=== PATIENT | female | born 1960 | race Caucasian/White ===

== ENCOUNTER → 2018-08-26 08:43 | Outpatient (BNVA) | payer MEDICARE, MEDICAID, SELFPAY | PROVIDERS: PCP Internal Medicine; Referring Provider Internal Medicine; Visit Provider Surgery | DX: K80.13 Calculus of gallbladder with acute and chronic cholecystitis with obstruction (principal) | CPT/HCPCS: 99203 ==

== ENCOUNTER 2018-08-31 06:49 | Day surgery (SDC) | payer MEDICARE, MEDICAID, SELFPAY ==
[2018-08-31] VITALS (7 sets, daily range): BP systolic 91–130; BP diastolic 47–84; PULSE 59–78; RESP 13–18; TEMP 35.3–36.1; O2SAT 94–98
--- NOTE | 2018-08-31 06:31 | W.PM.OP ---
Date of service: 08/31/18 Time of Service: 08:35 Operative Note DATE OF PROCEDURE: 08/31/18 PRE-OP DIAGNOSIS: Chronic Cholecystitis with Cholelithiasis POST-OP DIAGNOSIS: same PROCEDURE: Laparoscopic Cholecystectomy SURGEON: Lynnette Pryor FINISHING MACHINE TENDER: Ofe Olivas ANESTHESIA: GETA (ASA 2/ Mayra Engel CRNA) ESTIMATED BLOOD LOSS: 50 PATHOLOGY: other (Gallbladder and contents) COMPLICATIONS: None Patient was transported to: PACU Patient's condition: stable Implants: None Indications: Mrs. Loredo is a pleasant 57 year old female seen in the office for RUQ and upper back abdominal pain. She had an US done which showed signs consistent with Chronic Cholecystitis and Cholelithiasis. She is at this point unable to eat much due to pain. Risks, benefits, complications were reviewed with the patient in the office. Complications include but are not limited to bleeding, infection, injury to stomach, small bowel and large bowel, injury to the pancreas, injury to the common bile duct necessitating drainage and referral to tertiary center for repair, bile leak, adverse reactions to the medications, complications of intubation including a sore throat or injury to the uvula, [place], stroke and even . Questions were entertained and answered to her satisfaction and she wished to proceed. No guarantees were given or implied. Findings: One large stone noted in the gallbladder neck. Minimal inflammation. No thickening of the gallbladder wall. Procedure Description: After informed consent was obtained the patient was brought to the operating room, placed in a supine position and monitors were applied. SCDs were applied to her lower extremities and she was placed under general anesthesia and intubated without difficulty. Once intubated a Lovelace catheter was placed in a standard sterile fashion. Her abdomen was then prepped and draped in a sterile fashion using ChloraPrep. At this point a timeout was done and the patient's name, date of , procedure type, allergies to medications, metal in her body, antibiotic and DVT prophylaxis, and fire risk was assessed. At this point half percent Marcaine with epi was injected just above the umbilicus into the dermis and subcutaneous tissue. A 5 mm incision was made with an 11 blade. The skin next to the incision was grasped with penetrating towel clamps. While pulling up on the skin a 5 mm port was placed under direct visualization. The abdomen was insuflated. Once insuflated the small bowel and mesentery under the umbilical port was inspected for any injuries. Next 3 more ports were placed. A 12 mm port was placed in the subxiphoid area and two 5 mm ports were placed in the right upper quadrant. The liver was inspected and was smooth. The patient's bed was then turned to the left and her head was brought up. The gallbladder was grasped at the body and pushed towards the right shoulder, this allowed me to visualize the neck of the gallbladder. The neck was grasped and pulled towards the right flank and down allowing me to visualize the lymph node. Using a [place] dissector with cautery the lymph node was gently dissected away from the tissues and the fatty tissue was also dissected away. The cystic duct was identified and it was normal in size. The duct was dissected 360 degrees using the [place] dissector in order for me to visualize its entrance into the gallbladder. Liver was noted behind it. There were no other structures right behind. Critical view was achieved. 3 clips were placed one proximal and 2 distal and the cystic duct was cut. The cystic artery was then identified and dissected 360 degrees. It was located just medial to the cystic duct. It was visualized going into the gallbladder. Once dissected 3 more clips were placed one proximal and 2 distal and the artery was cut. Using the hook dissector the gallbladder was then dissected away from the liver bed and placed into an Endo Catch bag and pulled through the 12 mm port site. The incision did have to be increased in order for the gallbladder to be able to come out. The 12 mm port was placed back into the abdomen under direct visualization. 1 penetrating towel clamp was placed right next to the port to close the enlarged incision so we could keep the abdomen insuflated. The liver bed was inspected no bleeding was noted. All clips were identified on their respective structures. No bile leak was noted from the liver or the cystic duct. The abdomen was then irrigated with a 700 cc of normal saline until the effluent was clear. Once all the fluid was suctioned out, the rest of the local anesthetic mixture was injected above the liver to help with postoperative right shoulder pain. The 12 mm and the 2 right upper quadrant ports were removed under direct visualization and no bleeding was noted from the fascia. The abdomen was deflated completely and lastly the umbilical port was removed. The skin was cleaned and the fascia of the 12 mm port site was closed with a 0 Vicryl figure of eight suture. The dermis was closed with 4-0 Vicryl. The skin was dried and skin affix was applied over the closed incisions. Needle and sponge counts were correct at the end of the case. The blood loss was 50 cc. The Lovelace catheter was removed. At this point the patient was woken up, extubated and taken back to recovery in stable condition. There were no immediate complications.
--- NOTE | 2018-08-31 06:42 | W.PM.DSUDISC ---
Discharge Plan Disposition Patient Disposition: HOME Condition: Good Discharge Details Reason For Visit: Chronic Cholecystectomy Attending Provider: Lynnette Pryor Primary Care Provider: Anna Levine Home Meds and New Rx's Prescriptions: New acetaminophen 325 mg capsule 650 mg PO Q6H PRN (Reason: fever or pain) Qty: 30 RF: 0 ibuprofen [IBU-200] 200 mg tablet 600 mg PO Q6H PRN (Reason: fever or pain) Qty: 30 RF: 0 Continued acetylcysteine [NAC] 600 mg capsule 1,200 mg PO DAILY RF: 0 divalproex [Depakote] 500 mg tablet,delayed release (DR/EC) 500 mg PO HS RF: 0 topiramate [Topamax] 100 mg tablet 200 mg PO HS RF: 0 epinephrine [EpiPen] 0.3 mg/0.3 mL auto-injector 0.3 mg IM ONCE RF: 0 ondansetron 8 mg tablet,disintegrating 8 mg PO TID PRNRF: 0 atorvastatin 10 mg Tablet 10 mg PO DAILY RF: 0 Discharge Instructions Instructions: Laparoscopic Cholecystectomy (DC) Additional Instructions: Activity at Home after surgery: 1. Make sure you walk outside at least 4 times per day 2. You should be able to climb a flight of stairs 3. No driving while in pain or taking pain medications 4. No strenuous activity or heavy lifting for 2 weeks (laparoscopic surgery) Diet, Nutrition, & wound healin. Avoid alcohol until after you are recovered from your surgery 2. Make sure to eat plenty of lean protein (meat, fish, eggs, cottage cheese, beans) 3. Eat a variety of fruits and vegetables. Eat plenty of high fiber foods to avoid constipation. 4. Drink plenty of liquids to stay hydrated and avoid constipation Pain Medications: 1. Alternate Tylenol 650 mg and Ibuprofen 600 mg every 3 hours 2. If a narcotic has been prescribed take as directed only for breakthrough pain For Constipation: 1. Take Milk of Magnesia or MiraLax as needed for constipation Other: 1. You may shower daily. Do not scrub the incisions 2. Do not soak the incisions for 1 week 3. You may alternate ice and heat as needed for pain and swelling Wound Care: 1. Keep the incisions clean and dry Please call our office if you develop: 1. Fevers >101.5 2. Nausea or Vomiting 3. Worsening pain 4. Redness and thick discharge from the wounds If after hours please call the Hospital at and ask to speak to the on-call surgeon Referrals: Lynnette Pryor MD [ [facility] STAFF PHYSICIAN] - 09/13/18 1:30 pm Activity:: no lifting >20 lb x 2 weeks Diet:: Low fat for 2 weeks Discharge Orders Discharge Orders: Discharge Order (Routine); Ordered 08/31/18 Ordered By: Lynnette Pryor DS: Diagnosis Discharge Diagnosis (1) S/P laparoscopic cholecystectomy: Status: Acute
--- NOTE | 2018-08-31 06:45 | PDOC.DSDIS_ITS ---
Discharge Plan Disposition Patient Disposition: HOME Condition: Good Discharge Details Reason For Visit: Chronic Cholecystectomy Attending Provider: Lynnette Pryor Primary Care Provider: Anna Levine Home Meds and New Rx's Prescriptions: New acetaminophen 325 mg capsule 650 mg PO Q6H PRN (Reason: fever or pain) Qty: 30 RF: 0 ibuprofen [IBU-200] 200 mg tablet 600 mg PO Q6H PRN (Reason: fever or pain) Qty: 30 RF: 0 Continued acetylcysteine [NAC] 600 mg capsule 1,200 mg PO DAILY RF: 0 divalproex [Depakote] 500 mg tablet,delayed release (DR/EC) 500 mg PO HS RF: 0 topiramate [Topamax] 100 mg tablet 200 mg PO HS RF: 0 epinephrine [EpiPen] 0.3 mg/0.3 mL auto-injector 0.3 mg IM ONCE RF: 0 ondansetron 8 mg tablet,disintegrating 8 mg PO TID PRNRF: 0 atorvastatin 10 mg Tablet 10 mg PO DAILY RF: 0 Discharge Instructions Instructions: Laparoscopic Cholecystectomy (DC) Additional Instructions: Activity at Home after surgery: 1. Make sure you walk outside at least 4 times per day 2. You should be able to climb a flight of stairs 3. No driving while in pain or taking pain medications 4. No strenuous activity or heavy lifting for 2 weeks (laparoscopic surgery) Diet, Nutrition, & wound healin. Avoid alcohol until after you are recovered from your surgery 2. Make sure to eat plenty of lean protein (meat, fish, eggs, cottage cheese, beans) 3. Eat a variety of fruits and vegetables. Eat plenty of high fiber foods to avoid constipation. 4. Drink plenty of liquids to stay hydrated and avoid constipation Pain Medications: 1. Alternate Tylenol 650 mg and Ibuprofen 600 mg every 3 hours 2. If a narcotic has been prescribed take as directed only for breakthrough pain For Constipation: 1. Take Milk of Magnesia or MiraLax as needed for constipation Other: 1. You may shower daily. Do not scrub the incisions 2. Do not soak the incisions for 1 week 3. You may alternate ice and heat as needed for pain and swelling Wound Care: 1. Keep the incisions clean and dry Please call our office if you develop: 1. Fevers >101.5 2. Nausea or Vomiting 3. Worsening pain 4. Redness and thick discharge from the wounds If after hours please call the Hospital at and ask to speak to the on-call surgeon Referrals: Lynnette Pryor MD [ [facility] STAFF PHYSICIAN] - 09/13/18 1:30 pm Activity:: no lifting >20 lb x 2 weeks Diet:: Low fat for 2 weeks Discharge Orders Discharge Orders: Discharge Order (Routine); Ordered 08/31/18 Ordered By: Lynnette Pryor DS: Diagnosis Discharge Diagnosis (1) S/P laparoscopic cholecystectomy: Status: Acute
[2018-08-31] MEDS: Lactated Ringers 1,000 ML 80 ML IV (07:36)
[2018-08-31] MEDS: AMPICILLIN/SULBACTAM 3 GM in Normal Saline 100 ML IVPB (08:29)
--- NOTE | 2018-08-31 09:07 | GB_PTH ---
PATIENT: Matilda Loredo LOC: [facility] U#:[id number] AGE/SX: 57/F ROOM: RE08/31/[address]: Lynnette Pryor MD : [id number] BED: DIS: 08/31/2018 SPEC #: [id number] RECD: 08/31/18 12:50 STATUS: DIANA REQ #: [id number] ZAHIDA: 08/31/18 09:[address]: Lynnette Pryor DEPT: Surgical Specimen RECD BY: Evonne Hoover ENTERED: 08/31/18 12:50 SP TYPE: GB OTHR DR: Anna Levine Tissues: 1 - GALLBLADDER Procedures: GROSS AND MICRO LEVEL 3 Comments: [id number]
[2018-08-31] MEDS: Lidocaine 1% Multi-Dose 50 ML VIAL (09:15)
== END 2018-08-31 12:35 | disposition home or self-care (01) ==
LOC: SUR 06:50
PROVIDERS: PCP Internal Medicine; Visit Provider Surgery
PROC: 0FT44ZZ Resection of Gallbladder, Percutaneous Endoscopic Approach (ICD-10-PCS; CPT 47562; principal; 2018-08-31 08:00)
DX: K80.12 Calculus of gallbladder with acute and chronic cholecystitis without obstruction (principal); G47.33 Obstructive sleep apnea (adult) (pediatric)
CPT/HCPCS: 47562; 93005; 96361; 96365; 99284; 88304; 93010; J0295

== ENCOUNTER 2018-08-31 19:18 | Emergency (ER) | payer MEDICARE, MEDICAID, SELFPAY ==
[2018-08-31] VITALS (23 sets, daily range): BP systolic 147–175; BP diastolic 71–86; PULSE 60–68; RESP 16–20; TEMP 36.4–36.8; O2SAT 93–98
--- NOTE | 2018-08-31 19:38 | W.ED.GENAD ---
Discharge Plan Disposition Patient Disposition: HOME Condition: Good Discharge Details Chief Complaint: Nausea/Vomit/Diar Clinical Impression: Post-operative nausea and vomiting Primary Care Provider: Anna Levine ED Provider: Piter Castellanos [place] Meds and New Rx's Prescriptions: Continued acetylcysteine [NAC] 600 mg capsule 1,200 mg PO DAILY RF: 0 divalproex [Depakote] 500 mg tablet,delayed release (DR/EC) 500 mg PO HS RF: 0 topiramate [Topamax] 100 mg tablet 200 mg PO HS RF: 0 epinephrine [EpiPen] 0.3 mg/0.3 mL auto-injector 0.3 mg IM ONCE RF: 0 ondansetron 8 mg tablet,disintegrating 8 mg PO TID PRNRF: 0 atorvastatin 10 mg Tablet 10 mg PO DAILY RF: 0 acetaminophen 325 mg capsule 650 mg PO Q6H PRN (Reason: fever or pain) Qty: 30 RF: 0 ibuprofen [IBU-200] 200 mg tablet 600 mg PO Q6H PRN (Reason: fever or pain) Qty: 30 RF: 0 Discharge Instructions Instructions: Acute Nausea and Vomiting (ED) Additional Instructions: The phenergan you received for nausea and vomiting will make you very sedated. Would go home and try to sleep the rest of the night. I did speak to Dr. Pryor and she will check in on you in the morning. Return to ED for increasing abdominal pain, fever, recurrent/persistent vomiting. Referrals: Lynnette Pryor MD [ [facility] STAFF PHYSICIAN] - Medical Decision Making Patient actively vomiting here. She denies any increased or changed abdominal pain and when she was discharged postop. She denies chest pain or shortness of breath. She has had persistent vomiting since she woke up around 5. Will get an EKG but I do not think laboratory studies are necessary. Likely postoperative nausea and vomiting. Will place a line and give a liter of fluid with Phenergan 25 mg IV. Patient very sedated by the Phenergan but nausea and vomiting has stopped. She has tolerated sips of water. I did speak to Dr. Pryor. Will discharge the patient home and Dr. Pryor will check on her in the morning. Return to ED overnight if any fever, worsening abdominal pain, persistent vomiting. ECG Data Attestation: I personally reviewed and interpreted this ECG (s) as follows: Prior ECG tracings: not available for review Interpretation: Sinus rhythm at 61. Normal intervals and axis. Probable LVH with ST changes consistent with LVH. No acute ST elevation. HPI General Mode of arrival: wheelchair. Date/Time Provider Initiated Documentation: 08/31/18 19:31. Limitations to Documentation: no limitations. Information obtained by: patient. HPI Narrative: Patient presents to ED with nausea and vomiting. Patient had a laparoscopic cholecystectomy this morning. She went home and was doing fine. She took a nap. When she woke up she started to have vomiting and has been unable to stop. She has not had any increase in abdominal pain. She has had no fever she is aware of. At this point she is vomiting bilious material. She did try her Zofran ODT. She called the surgeon, Dr. Pryor, and was referred to the ED. Related Data Home Medications Medication Instructions Recorded Confirmed epinephrine 0.3 mg/0.3 mL 0.3 mg IM ONCE 08/23/18 08/31/18 injection, auto-injector ondansetron 8 mg disintegrating 8 mg PO TID PRN 08/23/18 08/31/18 tablet acetylcysteine 600 mg capsule 1,200 mg PO DAILY 08/26/18 08/31/18 divalproex 500 mg tablet,delayed 500 mg PO HS 08/26/18 08/31/18 release topiramate 100 mg tablet 200 mg PO HS 08/26/18 08/31/18 atorvastatin 10 mg PO DAILY 08/29/18 08/31/18 acetaminophen 650 mg PO Q6H PRN #30 cap 08/31/18 08/31/18 ibuprofen [IBU-200] 600 mg PO Q6H PRN #30 tab 08/31/18 08/31/18 Previous Rx's Medication Instructions Recorded acetaminophen 650 mg PO Q6H PRN #30 cap 08/31/18 ibuprofen [IBU-200] 600 mg PO Q6H PRN #30 tab 08/31/18 Allergies Allergy/AdvReac Type Severity Reaction Status Date / Time Tricyclic Compounds AdvReac Intermediate Hives Verified 08/31/18 19:30 General Stated Complaint: Nausea/Vomit/Diar [place]: 3 Review of Systems Review of Systems As documented in HPI otherwise negative as below. Const: no fever, chills, weakness Resp: no cough, SOB, pleuritic pain CV: no CP, diaphoresis, edema, syncope GI: no abdominal pain or diarrhea; positive nausea/vomiting Neuro: no headache, numbness, focal weakness, confusion [facility] Medical History Tenosynovitis (Chronic) Seizures (Chronic) Obstructive sleep apnea of adult (Chronic) Hypothyroidism (Chronic) Hyperlipidemia (Chronic) Cervical radiculopathy (Chronic) Carpal tunnel syndrome, left upper limb (Chronic) Allergic rhinitis (Chronic) Surgical History H/O gynecological procedure (Resolved) S/P laparoscopic cholecystectomy (Acute ~08/31/18) History of ear, nose, and throat (ENT) surgery (Resolved) Hx of myomectomy (Resolved) S/P total hysterectomy (Inactive) Social History Smoking/Tobacco Use Status: Current-Occasional Tobacco Type: cigarettes Alcohol Intake: current Alcohol Intake frequency: holidays/special occasions only Drug use: Daily Substance use type: marijuana Household members: significant other Number of Children: 3 Do you feel safe at home: Yes Do you feel safe in your relationship?: Yes Exam Narrative Exam Narrative: 1. Const: WDWN female actively vomiting. 2. Eyes: No conjunctival injection or scleral icterus. 3. ENT: Mucous membranes moist. 4. Neck: Supple. Trachea midline. 5. CVS: RRR without murmurs or gallops. Good radial pulses. 6. RESP: Unlabored respiratory effort. Clear to auscultation bilaterally. No wheezes, rales or rhonchi. 7. GI: Soft, NT/ND. No guarding or rebound. Bruising around incisional sites. 8. MSK: No C/C/E present. No deformity or tenderness noted. 9. Skin: Warm and dry. No rashes. 10. Neuro: A&O x3. pipe fitter maintenance II-XII grossly intact. Sensation grossly intact, no focal neurologic deficits. Course Vital Signs Temperature 97.5 F L 08/31/18 19:24 Pulse 60 08/31/18 19:24 Respiratory Rate 16 08/31/18 19:24 Blood Pressure 172/86 H 08/31/18 19:24 Pulse Oximetry 97 08/31/18 19:24 Temperature 97.5 F L 08/31/18 19:24 Temperature Source Skin 08/31/18 19:24 Pulse 60 08/31/18 19:24 Respiratory Rate 16 08/31/18 19:24 Respiratory Effort 08/31/18 19:29 Blood Pressure 172/86 H 08/31/18 19:24 Blood Pressure Position Sitting 08/31/18 19:24 Pulse Oximetry 97 08/31/18 19:24 Oxygen Delivery Method Room Air 08/31/18 19:24 Oxygen Flow Rate 0 08/31/18 19:24 Pain Level 3 08/31/18 19:24
[2018-08-31] MEDS: Normal Saline 1,000 ML 1000 ML IV (19:50)
--- NOTE | 2018-09-01 09:28 | NUR.NOTE ---
Nursing Note: Patient's daughter called stating that she brought her mother in last night for vomiting, and that the patient is still vomiting. I don't know what to do. I told her to call the Surgical office and let them know what is happening. With both last night and today. If she feels that she needs to return to the ED they should do so. Krissy Domínguez.
== END 2018-08-31 22:28 | disposition home or self-care (01) ==
PROVIDERS: Emergency Provider Emergency Medicine; PCP Internal Medicine
DX: R11.2 Nausea with vomiting, unspecified (principal); Z90.49 Acquired absence of other specified parts of digestive tract
CPT/HCPCS: 93005; 96361; 96365; 99284; 93010

== ENCOUNTER 2018-09-01 11:54 | Inpatient (IN) | payer MEDICARE, MEDICAID, SELFPAY ==
[2018-09-01 11:55] VITALS: BP 148/76; PULSE 74; RESP 18; TEMP 37.1; O2SAT 99
[2018-09-01] MEDS: Normal Saline 1,000 ML 1000 ML IV (12:00)
--- NOTE | 2018-09-01 12:17 | W.ED.GENAD ---
Discharge Plan Disposition Patient Disposition: [facility] INPATIENT Discharge Details Chief Complaint: Nausea/Vomit/Diar Admit Date/Time: 09/01/18 13:47 Admit Provider: Katelynn Jones Attending Provider: Katelynn Jones Primary Care Provider: Anna Levine ED Provider: Meaghan Olmedo Discharge Data Discharge Date/Time-TO BE ENTERED AT DEPARTURE: 09/01/18 14:28 Medical Decision Making Patient 57-year-old female presents today with chief complaint of nausea and vomiting. Patient is status post cholecystectomy, procedures performed yesterday morning. She was seen here last night for nausea and vomiting. At that time, she is treated with IV Phenergan which worked well for her. She reports that the home medication was unable to control her continued symptoms and she has not been able to stay hydrated secondary to this continued nausea. She reports that typically she has a bowel movement every morning, did not have one yesterday and none today. States she is also not been passing any flatus. Reports the pain is minimal and associates with areas of her incisions. Rates her pain at a 3 out of 10. She reports that she has been monitoring her temperature and has not noted a fever. No pain in her back. Denies any hematemesis. No change in urinary habits. On exam, patient appears uncomfortable. Abdomen is soft and nondistended. No guarding. Incisions appear to be healing well with some ecchymosis running circumferentially about these. No erythema or warmth. No discharge. Patient responded well to IV Phenergan last night, we will treat her with this once again today. Will hydrate the patient. She has not been passing any flatus, I am concerned for possible obstruction being the source of her vomiting. We will obtain a plain upright film. Once I have received this I will contact the on-call surgeon I reviewed the imaging not see any air-fluid levels. I am concerned that her white count is 22. This may be stress reaction but does seem quite high for this. Consulted with who is going to review the imaging and call back. Patient reports that she feels slight relief with the IV Phenergan but does not feel comfortable going home she is concerned she was just returning once again Discussed patients concerns with Dr. Jones. She evaluated the patient and has agreed to admission for continued hydration, monitoring and treatment for her nausea. Discussed plan wtih patient who is in agreemtn. HPI General Mode of arrival: wheelchair. Date/Time Provider Initiated Documentation: 09/01/18 12:05. Limitations to Documentation: no limitations. Information obtained by: patient, family and RN notes reviewed. History of Present Illness 57 year old F presents to the emergency department with the chief complaint of nausea and vomiting, described as mild, with intensity rated at 3. Quality is described as aching, and is localized to the abdomen. Patient reports no radiation. Patient started experiencing this day(s) (1) and it has been constant. No relieving factors improve symptom(s), No exacerbating factors reported . Patient notes nausea/vomiting; denies chest pain, cough, diaphoresis, fever/chills, headaches, rash and shortness of breath. Patient did receive the following treatments prior to arrival, other (ODT Zofran) Related Data Home Medications Medication Instructions Recorded Confirmed epinephrine 0.3 mg/0.3 mL 0.3 mg IM ONCE 08/23/18 08/31/18 injection, auto-injector ondansetron 8 mg disintegrating 8 mg PO TID PRN 08/23/18 08/31/18 tablet acetylcysteine 600 mg capsule 1,200 mg PO DAILY 08/26/18 08/31/18 divalproex 500 mg tablet,delayed 500 mg PO HS 08/26/18 08/31/18 release topiramate 100 mg tablet 200 mg PO HS 08/26/18 08/31/18 atorvastatin 10 mg PO DAILY 08/29/18 08/31/18 acetaminophen 650 mg PO Q6H PRN #30 cap 08/31/18 08/31/18 ibuprofen [IBU-200] 600 mg PO Q6H PRN #30 tab 08/31/18 08/31/18 Previous Rx's Medication Instructions Recorded acetaminophen 650 mg PO Q6H PRN #30 cap 08/31/18 ibuprofen [IBU-200] 600 mg PO Q6H PRN #30 tab 08/31/18 Allergies Allergy/AdvReac Type Severity Reaction Status Date / Time bee venom protein (honey bee) Allergy Severe Swelling/Ed Unverified 09/01/18 12:03 emiliano Tricyclic Compounds AdvReac Intermediate Hives Verified 09/01/18 12:02 General Stated Complaint: Nausea/Vomit/Diar [place]: 3 Review of Systems Constitutional Reports as per HPI, Denies chills, Denies fatigue, Denies fever(s) and Denies headache(s) ENT Denies headache(s) Cardiovascular Reports as per HPI, Denies chest pain and Denies dyspnea Respiratory Reports as per HPI, Denies cough and Denies dyspnea Gastrointestinal Reports as per HPI, Reports abdominal pain (discomfort assocated with recent surgery), Reports belching, Denies melena, Denies bloating, Reports change in bowel habits (no BM x 2 days), Denies cramping, Denies diarrhea, Reports nausea, Reports vomiting and Denies hematemesis Musculoskeletal Reports as per HPI and Denies back pain Integumentary/Breasts Reports as per HPI and Denies rash Neurologic Reports as per HPI and Denies headache(s) Endocrine Denies fatigue PFSH Medical History Dehydration (Acute) Elevated WBC count (Acute) PONV (postoperative nausea and vomiting) (Acute) Tenosynovitis (Chronic) Seizures (Chronic) Obstructive sleep apnea of adult (Chronic) Hypothyroidism (Chronic) Hyperlipidemia (Chronic) Cervical radiculopathy (Chronic) Carpal tunnel syndrome, left upper limb (Chronic) Allergic rhinitis (Chronic) Surgical History H/O gynecological procedure (Resolved) S/P laparoscopic cholecystectomy (Acute ~08/31/18) History of ear, nose, and throat (ENT) surgery (Resolved) Hx of myomectomy (Resolved) S/P total hysterectomy (Inactive) Family History Father Progressive supranuclear palsy Mother Hyperlipidemia Hypertension Diabetes Social History Smoking/Tobacco Use Status: Current-Occasional Tobacco Type: cigarettes Alcohol Intake: current Alcohol Intake frequency: holidays/special occasions only Drug use: Daily Substance use type: marijuana Household members: significant other Number of Children: 3 Do you feel safe at home: Yes Do you feel safe in your relationship?: Yes Exam Const General: cooperative, healthy appearing, comfortable and well developed Nutritional Appearance: well nourished and overweight Orientation: alert and awake HENMT Head: normal to inspection Mouth: moist mucous membranes Resp Effort & Inspection: normal respiratory effort, able to speak in complete sentences and no respiratory distress Auscultation: clear to auscultation bilaterally, no rales, no rhonchi and no wheezes Cardio Rate: regular rate Rhythm: regular rhythm Heart Sounds: S1 normal and S2 normal GI Inspection: abdominal wall ecchymosis (ecchymosis around incisions), no edema, non-distended, incision and obesity Palpation: soft, no hepatosplenomegaly, no aortic enlargement, not firm and no guarding Percussion: normal to percussion Auscultation: absent bowel sounds Back/Spine/Pelvis Back: no CVA tenderness Skin General skin exam: no rashes or lesions noted Trauma: no lacerations or abrasions Neuro General: alert and awake Cognition: normal cognition Speech: speech normal Gait: normal gait Psych Appearance: grossly normal and well kempt Mental Status: mental status grossly normal Speech and Movement: speech and movement normal Course Vital Signs Temperature 37.1 C 09/01/18 11:55 Pulse 74 09/01/18 11:55 Respiratory Rate 18 09/01/18 11:55 Blood Pressure 148/76 H 09/01/18 11:55 Pulse Oximetry 99 09/01/18 11:55 Temperature 37.1 C 09/01/18 11:55 Temperature Source Skin 09/01/18 11:55 Pulse 74 09/01/18 11:55 Respiratory Rate 18 09/01/18 11:55 Respiratory Effort Non-Labored 09/01/18 12:04 Blood Pressure 148/76 H 09/01/18 11:55 Pulse Oximetry 99 09/01/18 11:55 Oxygen Delivery Method Room Air 09/01/18 11:55 Oxygen Flow Rate 0 09/01/18 11:55 Pain Level 3 09/01/18 11:55
[2018-09-01 12:19] LABS: Abs Immature Grans 0.09 k/cumm (0.0-0.09); HCT 45.6 % (36.0-46.0); HGB 15.5 g/dL (12.0-15.5); Mean Corpuscular Hemoglobin 31.3 pg (27.0-33.0); Mean Corpuscular Volume 91.9 fL (80-95); Mean Platelet Volume 10.9 fL (8.0-11.0); Platelet Count 358 x1000/uL (130-400); RBC 4.96 m/cumm (4.00-5.20); RBC Distribution Width 13.1 % (11.7-14.6); White Blood Cell Count 22.14 k/cumm (4.4-10.8)
[2018-09-01] MEDS: Normal Saline Flush 10 ML SYR IVP (12:22)
--- NOTE | 2018-09-01 12:31 | DI.RAD_ITS ---
SYMPTOMS/DIAGNOSIS: NAUSEA, VOMITING, POSTOPERATIVE, NO FLATUS PA CHEST: The heart is normal in size. The lungs are clear. The mediastinal structures and pleura appear intact. CONCLUSION: Normal chest. ABDOMEN: Three views were obtained. No free intraperitoneal air seen on upright views. The bowel gas pattern is unremarkable with a moderate quantity of fecal material in the colon. There are vascular clips in the right upper quadrant consistent with a previous cholecystectomy. CONCLUSION: No evidence of acute process.
[2018-09-01 12:35] LABS: Absolute Lymphocyte Count 3.32 k/cumm (1.2-3.4); Absolute Monocyte Count 1.33 k/cumm (0.11-0.7); Absolute Neutrophil Count 17.49 k/cumm (1.2-6.7); Atypical Lymphocytes % 4; Diff Comment Manual Differential; RBC Morphology Normal
--- NOTE | 2018-09-01 12:35 | ED.GENADUL_ITS ---
Discharge Plan Disposition Patient Disposition: [facility] INPATIENT Discharge Details Chief Complaint: Nausea/Vomit/Diar Admit Date/Time: 09/01/18 13:47 Admit Provider: Katelynn Jones Attending Provider: Katelynn Jones Primary Care Provider: Anna Levine ED Provider: Meaghan Olmedo Discharge Data Discharge Date/Time-TO BE ENTERED AT DEPARTURE: 09/01/18 14:28 Medical Decision Making Patient 57-year-old female presents today with chief complaint of nausea and vomiting. Patient is status post cholecystectomy, procedures performed yesterday morning. She was seen here last night for nausea and vomiting. At that time, she is treated with IV Phenergan which worked well for her. She reports that the home medication was unable to control her continued symptoms and she has not been able to stay hydrated secondary to this continued nausea. She reports that typically she has a bowel movement every morning, did not have one yesterday and none today. States she is also not been passing any flatus. Reports the pain is minimal and associates with areas of her incisions. Rates her pain at a 3 out of 10. She reports that she has been monitoring her temperature and has not noted a fever. No pain in her back. Denies any hematemesis. No change in urinary habits. On exam, patient appears uncomfortable. Abdomen is soft and nondistended. No guarding. Incisions appear to be healing well with some ecchymosis running circumferentially about these. No erythema or warmth. No discharge. Patient responded well to IV Phenergan last night, we will treat her with this once again today. Will hydrate the patient. She has not been passing any flatus, I am concerned for possible obstruction being the source of her vomiting. We will obtain a plain upright film. Once I have received this I will contact the on- call surgeon I reviewed the imaging not see any air-fluid levels. I am concerned that her white count is 22. This may be stress reaction but does seem quite high for this. Consulted with who is going to review the imaging and call back. Patient reports that she feels slight relief with the IV Phenergan but does not feel comfortable going home she is concerned she was just returning once again Discussed patients concerns with Dr. Jones. She evaluated the patient and has agreed to admission for continued hydration, monitoring and treatment for her nausea. Discussed plan wtih patient who is in agreemtn. HPI General Mode of arrival: wheelchair . Date/Time Provider Initiated Documentation: 09/01/18 12:05 . Limitations to Documentation: no limitations . Information obtained by: patient, family and RN notes reviewed . History of Present Illness 57 year old F presents to the emergency department with the chief complaint of nausea and vomiting, described as mild, with intensity rated at 3. Quality is described as aching, and is localized to the abdomen. Patient reports no radiation. Patient started experiencing this day(s) (1) and it has been constant. No relieving factors improve symptom(s), No exacerbating factors reported . Patient notes nausea/vomiting; denies chest pain, cough, diaphoresis, fever/chills, headaches, rash and shortness of breath. Patient did receive the following treatments prior to arrival, other (ODT Zofran) Related Data Home Medications Medication Instructions Recorded Confirmed epinephrine 0.3 mg/0.3 mL 0.3 mg IM ONCE 08/23/18 08/31/18 injection, auto-injector ondansetron 8 mg disintegrating 8 mg PO TID PRN 08/23/18 08/31/18 tablet acetylcysteine 600 mg capsule 1,200 mg PO DAILY 08/26/18 08/31/18 divalproex 500 mg tablet,delayed 500 mg PO HS 08/26/18 08/31/18 release topiramate 100 mg tablet 200 mg PO HS 08/26/18 08/31/18 atorvastatin 10 mg PO DAILY 08/29/18 08/31/18 acetaminophen 650 mg PO Q6H PRN #30 cap 08/31/18 08/31/18 ibuprofen [IBU-200] 600 mg PO Q6H PRN #30 tab 08/31/18 08/31/18 Previous Rx's Medication Instructions Recorded acetaminophen 650 mg PO Q6H PRN #30 cap 08/31/18 ibuprofen [IBU-200] 600 mg PO Q6H PRN #30 tab 08/31/18 Allergies Allergy/AdvReac Type Severity Reaction Status Date / Time bee venom protein (honey bee) Allergy Severe Swelling/Ed Unverified 09/01/18 12:03 emiliano Tricyclic Compounds AdvReac Intermediate Hives Verified 09/01/18 12:02 General Stated Complaint: Nausea/Vomit/Diar [place]: 3 Review of Systems Constitutional Reports as per HPI, Denies chills, Denies fatigue, Denies fever(s) and Denies headache(s) ENT Denies headache(s) Cardiovascular Reports as per HPI, Denies chest pain and Denies dyspnea Respiratory Reports as per HPI, Denies cough and Denies dyspnea Gastrointestinal Reports as per HPI, Reports abdominal pain (discomfort assocated with recent surgery), Reports belching, Denies melena, Denies bloating, Reports change in bowel habits (no BM x 2 days), Denies cramping, Denies diarrhea, Reports nausea, Reports vomiting and Denies hematemesis Musculoskeletal Reports as per HPI and Denies back pain Integumentary/Breasts Reports as per HPI and Denies rash Neurologic Reports as per HPI and Denies headache(s) Endocrine Denies fatigue PFSH Medical History Dehydration (Acute) Elevated WBC count (Acute) PONV (postoperative nausea and vomiting) (Acute) Tenosynovitis (Chronic) Seizures (Chronic) Obstructive sleep apnea of adult (Chronic) Hypothyroidism (Chronic) Hyperlipidemia (Chronic) Cervical radiculopathy (Chronic) Carpal tunnel syndrome, left upper limb (Chronic) Allergic rhinitis (Chronic) Surgical History H/O gynecological procedure (Resolved) S/P laparoscopic cholecystectomy (Acute ~08/31/18) History of ear, nose, and throat (ENT) surgery (Resolved) Hx of myomectomy (Resolved) S/P total hysterectomy (Inactive) Family History Father Progressive supranuclear palsy Mother Hyperlipidemia Hypertension Diabetes Social History Smoking/Tobacco Use Status: Current-Occasional Tobacco Type: cigarettes Alcohol Intake: current Alcohol Intake frequency: holidays/special occasions only Drug use: Daily Substance use type: marijuana Household members: significant other Number of Children: 3 Do you feel safe at home: Yes Do you feel safe in your relationship?: Yes Exam Const General: cooperative, healthy appearing, comfortable and well developed Nutritional Appearance: well nourished and overweight Orientation: alert and awake HENMT Head: normal to inspection Mouth: moist mucous membranes Resp Effort & Inspection: normal respiratory effort, able to speak in complete sentences and no respiratory distress Auscultation: clear to auscultation bilaterally, no rales, no rhonchi and no wheezes Cardio Rate: regular rate Rhythm: regular rhythm Heart Sounds: S1 normal and S2 normal GI Inspection: abdominal wall ecchymosis (ecchymosis around incisions), no edema, non-distended, incision and obesity Palpation: soft, no hepatosplenomegaly, no aortic enlargement, not firm and no guarding Percussion: normal to percussion Auscultation: absent bowel sounds Back/Spine/Pelvis Back: no CVA tenderness Skin General skin exam: no rashes or lesions noted Trauma: no lacerations or abrasions Neuro General: alert and awake Cognition: normal cognition Speech: speech normal Gait: normal gait Psych Appearance: grossly normal and well kempt Mental Status: mental status grossly normal Speech and Movement: speech and movement normal Course Vital Signs Temperature 37.1 C 09/01/18 11:55 Pulse 74 09/01/18 11:55 Respiratory Rate 18 09/01/18 11:55 Blood Pressure 148/76 H 09/01/18 11:55 Pulse Oximetry 99 09/01/18 11:55 Temperature 37.1 C 09/01/18 11:55 Temperature Source Skin 09/01/18 11:55 Pulse 74 09/01/18 11:55 Respiratory Rate 18 09/01/18 11:55 Respiratory Effort Non-Labored 09/01/18 12:04 Blood Pressure 148/76 H 09/01/18 11:55 Pulse Oximetry 99 09/01/18 11:55 Oxygen Delivery Method Room Air 09/01/18 11:55 Oxygen Flow Rate 0 09/01/18 11:55 Pain Level 3 09/01/18 11:55
[2018-09-01 12:38] LABS: ALT 38 U/L (12-78); AST 23 U/L (15-37); Albumin 4.2 g/dL (3.4-5.0); Alkaline Phosphatase 96 U/L (46-116); Anion Gap 12.7 mmol/L (3-11); BUN 10 mg/dL (7-18); Bilirubin, Total 0.5 mg/dL (0.2-1.0); CO2 23.3 mmol/L (21.0-32.0); CREATININE 0.87 mg/dL (0.55-1.02); Calcium 9.2 mg/dL (8.5-10.1); Chloride 102 mmol/L (98-107); Glucose 129 mg/dL (70-100); Magnesium 2.4 mg/dL (1.8-2.4); Potassium 3.6 mmol/L (3.5-5.1); Sodium 138 mmol/L (136-145); Total Protein 8.6 g/dL (6.4-8.2)
[2018-09-01 12:40] LABS: Troponin I < 0.02 ng/mL (0.00-0.06)
[2018-09-01 14:04] LABS: Lactate-non-spesis 1.8 mmol/l (0.6-1.4)
[2018-09-01 14:21] VITALS: BP 148/76; PULSE 74; RESP 18; TEMP 37.1; O2SAT 99
--- NOTE | 2018-09-01 14:27 | W.PM.HP.N ---
Date of service: 09/01/18 Time of Service: 14:27 Assessment and Plan (1) S/P laparoscopic cholecystectomy: Current visit: No Status: Acute admit for hydration and N/V control uncertain of signif of elevated WBC- check procalcitonin and lactate. will follow. no clinical source evident for infection : no pneumonia/UTI/soft infection/intra-abdom infection or abscess/blood stream infection. Will monitor for these. supportive care cont meds for seizures if increase in abdom pain or cont w/ N/V- consider ordering HIDA to assess for bile leak. clinically dose not appear to have bile leak at this time. clinically does not appear to have any bile leak/CBD injury/ intra-abdom infections. no peritonitis or signs of bowel injury. (2) Seizures: Current visit: No Status: Chronic cont meds (3) Obstructive sleep apnea of adult: Current visit: No Status: Chronic CPAP (4) Hypothyroidism: Current visit: No Status: Chronic cont meds (5) Hyperlipidemia: Current visit: No Status: Chronic cont meds (6) PONV (postoperative nausea and vomiting): Current visit: Yes Status: Acute admit for hydration and symptom control (7) Elevated WBC count: Current visit: Yes Status: Acute uncertain of signi at this time (8) Dehydration: Current visit: Yes Status: Acute as above History of Present Illness Chief Complaint: PONV Consults Consult date: 09/01/18 Requesting physician: Josefina Madera Narrative: pt underwent lap [place] on 08/31 for gallstones. review Op report shows to be pretty straight foreward case w/ no signif dif or problems. Pt was in ED last pm w/ PONV. Pt has had mult sx in past w/ no hx of PONV. ODT Zofran not controlling n/v. Pt very tired and dehydrated. still + N/V. Elevated WBC- seems slt higher than what would expect for just postOp stress. clinical s/s don't seem to suggest bowel injury or bile duct injury or bile leak. no signs of UTI/pneumonia/DVT/wound infection. + smoker. no DM. Will admit for hydration/ N/V control and obs. Don't see indication for abx at this time. will monitor closely for signs of infection/leak. Poss HIDA in am if signs of bile leak. PFSH Medical History Tenosynovitis (Chronic) Seizures (Chronic) Obstructive sleep apnea of adult (Chronic) Hypothyroidism (Chronic) Hyperlipidemia (Chronic) Cervical radiculopathy (Chronic) Carpal tunnel syndrome, left upper limb (Chronic) Allergic rhinitis (Chronic) Surgical History H/O gynecological procedure (Resolved) S/P laparoscopic cholecystectomy (Acute ~08/31/18) History of ear, nose, and throat (ENT) surgery (Resolved) Hx of myomectomy (Resolved) S/P total hysterectomy (Inactive) Family History Father Progressive supranuclear palsy Mother Hyperlipidemia Hypertension Diabetes Social History Smoking/Tobacco Use Status: Current-Occasional Tobacco Type: cigarettes Alcohol Intake: current Alcohol Intake frequency: holidays/special occasions only Drug use: Daily Substance use type: marijuana Household members: significant other Number of Children: 3 Do you feel safe at home: Yes Do you feel safe in your relationship?: Yes Meds Home Medications Medication Instructions Recorded Confirmed Type epinephrine 0.3 mg/0.3 mL 0.3 mg IM ONCE 08/23/18 08/31/18 History injection, auto-injector ondansetron 8 mg disintegrating 8 mg PO TID PRN 08/23/18 08/31/18 History tablet acetylcysteine 600 mg capsule 1,200 mg PO DAILY 08/26/18 08/31/18 History divalproex 500 mg tablet,delayed 500 mg PO HS 08/26/18 08/31/18 History release topiramate 100 mg tablet 200 mg PO HS 08/26/18 08/31/18 History atorvastatin 10 mg PO DAILY 08/29/18 08/31/18 History acetaminophen 650 mg PO Q6H PRN #30 cap 08/31/18 08/31/18 Rx ibuprofen [IBU-200] 600 mg PO Q6H PRN #30 tab 08/31/18 08/31/18 Rx Allergies Allergy/AdvReac Type Severity Reaction Status Date / Time bee venom protein (honey bee) Allergy Severe Swelling/Ed Unverified 09/01/18 12:03 emiliano Tricyclic Compounds AdvReac Intermediate Hives Verified 09/01/18 12:02 Results Labs : 09/01/18 14:25 09/01/18 12:00 Laboratory Results - last 24 hr 09/01/18 09/01/18 09/01/18 12:00 12:00 14:00 WBC 22.14 H RBC 4.96 Hgb 15.5 Hct 45.6 MCV 91.9 MCH 31.3 MCHC 34.0 RDW 13.1 Plt Count 358 MPV 10.9 Immature Gran % 0.0 Neutrophils % 79.0 Lymphocytes % 11.0 Atypical Lymphs % 4 Monocytes % 6.0 Eosinophils % 0.0 Basophils % 0.0 Absolute Neutrophils 17.49 H Absolute Lymphocytes 3.32 Absolute Monocytes 1.33 H Absolute Eosinophils 0.00 Absolute Basophils 0.00 Differential Comment Manual differential RBC Morphology Normal Sodium 138 Potassium 3.6 Chloride 102 Carbon Dioxide 23.3 Anion Gap 12.7 H BUN 10 Creatinine 0.87 Estimated GFR/1.73 m2 >= 60.00 Glucose 129 H Lactate 1.8 H Calcium 9.2 Magnesium 2.4 Total Bilirubin 0.5 AST 23 ALT 38 Alkaline Phosphatase 96 Troponin I < 0.02 Total Protein 8.6 H Albumin 4.2 09/01/18 09/01/18 16:54 19:54 WBC RBC Hgb Hct MCV MCH MCHC RDW Plt Count MPV Immature Gran % Neutrophils % Lymphocytes % Atypical Lymphs % Monocytes % Eosinophils % Basophils % Absolute Neutrophils Absolute Lymphocytes Absolute Monocytes Absolute Eosinophils Absolute Basophils Differential Comment RBC Morphology Sodium Potassium Chloride Carbon Dioxide Anion Gap BUN Creatinine Estimated GFR/1.73 m2 Glucose Lactate Cancelled Cancelled Calcium Magnesium Total Bilirubin AST ALT Alkaline Phosphatase Troponin I Total Protein Albumin Last Vital Signs Temp 37.1 C 09/01/18 11:55 Pulse 74 09/01/18 11:55 Resp 18 09/01/18 11:55 BP 148/76 H 09/01/18 11:55 Pulse Ox 99 09/01/18 11:55
[2018-09-01 14:33] LABS: Abs Immature Grans 0.06 k/cumm (0.0-0.09); Absolute Basophil Count 0.02 k/cumm (0.0-0.2); Absolute Lymphocyte Count 2.85 k/cumm (1.2-3.4); Absolute Monocyte Count 1.64 k/cumm (0.11-0.7); Basophils % 0.1; Eosinophils % 0.1; Immature Grans % 0.3; Lymphocytes % 15.5; Monocytes % 8.9; Neutrophils % 75.1; White Blood Cell Count 18.38 k/cumm (4.4-10.8)
[2018-09-01 14:35] VITALS: BP 162/86; PULSE 72; RESP 19; TEMP 37.7; O2SAT 98
[2018-09-01 14:35] LABS: Absolute Eosinophil Count 0.02 k/cumm (0.0-0.7)
[2018-09-01] MEDS: Lactated Ringers 1,000 ML 150 ML IV ×2 (14:37→20:08)
[2018-09-01 15:45] VITALS: BP 174/84; PULSE 80; RESP 16; TEMP 38; O2SAT 97
--- NOTE | 2018-09-01 15:50 | W.PM.HP.N ---
Date of service: 09/01/18 Time of Service: 15:51 Assessment and Plan (1) Elevated WBC count: Current visit: Yes Status: Acute will follow for poss CT if not feeling better History of Present Illness Narrative: pt PE did not get into orig H&P. this H&P only has ROS nad PE Review of Systems Review of Systems All systems reviewed & are unremarkable except as noted in HPI and below Constitutional Reports as per HPI, Reports system reviewed and no additional complaints, except as docu, Denies anorexia, Denies chills, Denies difficulty sleeping, Reports fatigue, Denies headache(s), Denies lethargy, Denies malaise, Reports poor appetite, Reports weakness, Denies weight gain and Denies weight loss Comments: N/V Eyes Reports as per HPI, Reports system reviewed and no additional complaints, except as docu and Denies change in vision ENT Reports system reviewed and no additional complaints, except as docu, Reports as per HPI, Denies change in voice, Denies dental pain, Denies dysphagia, Denies dizziness, Denies facial pain, Denies headache(s) and Denies odynophagia Cardiovascular Reports as per HPI, Reports system reviewed and no additional complaints, except as docu, Denies chest pain, Denies chest pain with activity, Denies syncope, Denies leg edema and Denies dyspnea Respiratory Reports as per HPI, Reports system reviewed and no additional complaints, except as docu, Denies chest congestion, Denies cough, Denies pain with cough and Denies dyspnea Gastrointestinal Reports as per HPI, Reports system reviewed and no additional complaints, except as docu, Denies abdominal pain, Denies bloating, Denies change in bowel habits, Denies change in stool character, Denies constipation, Denies cramping, Denies dysphagia, Denies early satiety, Denies heartburn, Denies diarrhea, Reports nausea, Denies odynophagia and Reports vomiting Comments: no bowel movement since Wednesday. Not passing gas today- belching. incision show some mild bruising- otherwise no signs of infection. mild distention. No peritonitis. no BS. has minimal pain at incision sites. Does not seem to have full peritonitis. Musculoskeletal Reports system reviewed and no additional complaints, except as docu, Reports as per HPI, Denies abnormal gait, Denies arthralgias and Denies muscle weakness Comments: no calf pain or swelling Integumentary/Breasts Reports system reviewed and no additional complaints, except as docu, Reports as per HPI, Denies changing lesions, Denies new lesions and Denies jaundice Neurologic Reports system reviewed and no additional complaints, except as docu, Reports as per HPI, Denies abnormal speech, Denies abnormal gait, Denies dizziness, Denies syncope, Denies headache(s), Denies memory loss and Reports weakness Psychiatric Reports system reviewed and no additional complaints, except as docu, Reports as per HPI, Denies change in appetite and Denies memory loss Endocrine Reports fatigue, Denies polydipsia and Denies polyuria Hematologic/Lymphatic Reports system reviewed and no additional complaints, except as docu, Denies easy bleeding and Denies easy bruising Allergic/Immunologic Denies system reviewed and no additional complaints, except as docu, Reports as per HPI and Denies urticaria PFSH Medical History Dehydration (Acute) Elevated WBC count (Acute) PONV (postoperative nausea and vomiting) (Acute) Tenosynovitis (Chronic) Seizures (Chronic) Obstructive sleep apnea of adult (Chronic) Hypothyroidism (Chronic) Hyperlipidemia (Chronic) Cervical radiculopathy (Chronic) Carpal tunnel syndrome, left upper limb (Chronic) Allergic rhinitis (Chronic) Surgical History H/O gynecological procedure (Resolved) S/P laparoscopic cholecystectomy (Acute ~08/31/18) History of ear, nose, and throat (ENT) surgery (Resolved) Hx of myomectomy (Resolved) S/P total hysterectomy (Inactive) Family History Father Progressive supranuclear palsy Mother Hyperlipidemia Hypertension Diabetes Social History Smoking/Tobacco Use Status: Current-Occasional Tobacco Type: cigarettes Alcohol Intake: current Alcohol Intake frequency: holidays/special occasions only Drug use: Daily Substance use type: marijuana Household members: significant other Number of Children: 3 Do you feel safe at home: Yes Do you feel safe in your relationship?: Yes Meds Home Medications Medication Instructions Recorded Confirmed Type epinephrine 0.3 mg/0.3 mL 0.3 mg IM ONCE 08/23/18 08/31/18 History injection, auto-injector ondansetron 8 mg disintegrating 8 mg PO TID PRN 08/23/18 08/31/18 History tablet acetylcysteine 600 mg capsule 1,200 mg PO DAILY 08/26/18 08/31/18 History divalproex 500 mg tablet,delayed 500 mg PO HS 08/26/18 08/31/18 History release topiramate 100 mg tablet 200 mg PO HS 08/26/18 08/31/18 History atorvastatin 10 mg PO DAILY 08/29/18 08/31/18 History acetaminophen 650 mg PO Q6H PRN #30 cap 08/31/18 08/31/18 Rx ibuprofen [IBU-200] 600 mg PO Q6H PRN #30 tab 08/31/18 08/31/18 Rx Allergies Allergy/AdvReac Type Severity Reaction Status Date / Time bee venom protein (honey bee) Allergy Severe Swelling/Ed Unverified 09/01/18 12:03 emiliano Tricyclic Compounds AdvReac Intermediate Hives Verified 09/01/18 12:02 Exam Const General: cooperative, healthy appearing, comfortable, no acute distress, well developed and well groomed Nutritional Appearance: average body habitus and well nourished Orientation: alert, awake and oriented x3 HENMT Head: normal to inspection, normocephalic and atraumatic Ears: hearing grossly normal bilaterally and external ears normal General nose exam: external nose normal Face and sinus: normal facial exam and sinuses nontender Mouth: oral mucosae normal, lip normal, tongue normal and moist mucous membranes Teeth and gingiva: dentition normal Eyes General: appearance normal, both eyes and all related structures Conjunctivae: conjunctivae normal Sclera: sclerae normal Pupils: PERRL Neck Neck: normal visual inspection and full ROM Chest Chest: normal inspection of the chest Resp Effort & Inspection: normal respiratory effort, able to speak in complete sentences, no cough, no nasal flaring, not tachypneic and no use of accessory muscles Auscultation: clear to auscultation bilaterally, no rales, no rhonchi and no wheezes Cardio Jugular venous pressure: no JVD Rate: regular rate Rhythm: regular rhythm GI Inspection: abdominal wall ecchymosis, no edema, non-distended and incision (c/d/i. mild brusing ) Palpation: soft, no masses, tender (at epigastric insicion sites. ) and No ascites Auscultation: absent bowel sounds Other: appears to have nl postOp pain at incision sites only. Skin General skin exam: no rashes or lesions noted Trauma: no lacerations or abrasions Neuro General: alert, oriented x3, oriented, gait normal, moves all extremities, no focal motor deficits and CN's II-XI intact bilaterally Cognition: normal cognition Speech: speech normal Gait: normal gait Motor: muscle tone normal throughout Extrem General: normal to inspection, full ROM and no clubbing, cyanosis or edema Psych Appearance: grossly normal and well kempt Mental Status: mental status grossly normal Speech and Movement: speech and movement normal Affect: normal affect Results Labs : 09/01/18 14:25 09/01/18 12:00 Laboratory Results - last 24 hr 09/01/18 09/01/18 09/01/18 12:00 12:00 13:54 WBC 22.14 H RBC 4.96 Hgb 15.5 Hct 45.6 MCV 91.9 MCH 31.3 MCHC 34.0 RDW 13.1 Plt Count 358 MPV 10.9 Immature Gran % 0.0 Neutrophils % 79.0 Lymphocytes % 11.0 Atypical Lymphs % 4 Monocytes % 6.0 Eosinophils % 0.0 Basophils % 0.0 Absolute Neutrophils 17.49 H Absolute Lymphocytes 3.32 Absolute Monocytes 1.33 H Absolute Eosinophils 0.00 Absolute Basophils 0.00 Differential Comment Manual differential RBC Morphology Normal Sodium 138 Potassium 3.6 Chloride 102 Carbon Dioxide 23.3 Anion Gap 12.7 H BUN 10 Creatinine 0.87 Estimated GFR/1.73 m2 >= 60.00 Glucose 129 H Lactate Cancelled Calcium 9.2 Magnesium 2.4 Total Bilirubin 0.5 AST 23 ALT 38 Alkaline Phosphatase 96 Troponin I < 0.02 Total Protein 8.6 H Albumin 4.2 09/01/18 09/01/18 09/01/18 14:00 14:25 16:54 WBC 18.38 H RBC Hgb Hct MCV MCH MCHC RDW Plt Count MPV Immature Gran % 0.3 Neutrophils % 75.1 Lymphocytes % 15.5 Atypical Lymphs % Monocytes % 8.9 Eosinophils % 0.1 Basophils % 0.1 Absolute Neutrophils 13.80 H Absolute Lymphocytes 2.85 Absolute Monocytes 1.64 H Absolute Eosinophils 0.02 Absolute Basophils 0.02 Differential Comment RBC Morphology Sodium Potassium Chloride Carbon Dioxide Anion Gap BUN Creatinine Estimated GFR/1.73 m2 Glucose Lactate 1.8 H Cancelled Calcium Magnesium Total Bilirubin AST ALT Alkaline Phosphatase Troponin I Total Protein Albumin 09/01/18 19:54 WBC RBC Hgb Hct MCV MCH MCHC RDW Plt Count MPV Immature Gran % Neutrophils % Lymphocytes % Atypical Lymphs % Monocytes % Eosinophils % Basophils % Absolute Neutrophils Absolute Lymphocytes Absolute Monocytes Absolute Eosinophils Absolute Basophils Differential Comment RBC Morphology Sodium Potassium Chloride Carbon Dioxide Anion Gap BUN Creatinine Estimated GFR/1.73 m2 Glucose Lactate Cancelled Calcium Magnesium Total Bilirubin AST ALT Alkaline Phosphatase Troponin I Total Protein Albumin Last Vital Signs Temp 37.7 C H 09/01/18 14:35 Pulse 72 09/01/18 14:35 Resp 19 09/01/18 14:35 BP 162/86 H 09/01/18 14:35 Pulse Ox 98 09/01/18 14:35
[2018-09-01] MEDS: Scopolamine 1 MG/3 DAYS PATCH TD (16:14)
[2018-09-01] MEDS: Enoxaparin 40 MG/0.4 ML SYR SC (16:16)
[2018-09-01] MEDS: Ondansetron 4 MG/2 ML VIAL IVP (16:18)
[2018-09-01] MEDS: Pantoprazole 40 MG VIAL IVP (16:24)
[2018-09-01] MEDS: Docusate Sodium 100 MG CAP PO ×2 (16:24→20:05)
[2018-09-01] MEDS: Topiramate 100 MG TAB 200 MG PO (21:18)
[2018-09-01] MEDS: Divalproex 500 MG TABEC PO (21:18)
[2018-09-02] MEDS: Ondansetron 4 MG/2 ML VIAL IVP ×2 (00:18→08:45)
[2018-09-02] MEDS: Normal Saline Flush 10 ML SYR IVP ×3 (00:19→16:03)
[2018-09-02 01:30] VITALS: BP 163/85; PULSE 76; RESP 16; TEMP 37.5; O2SAT 95
[2018-09-02] MEDS: Lactated Ringers 1,000 ML 150 ML IV ×4 (02:44→23:38)
[2018-09-02 07:27] LABS: Lactate-non-spesis 1.5 mmol/l (0.6-1.4)
[2018-09-02 07:31] LABS: Abs Immature Grans 0.06 k/cumm (0.0-0.09); Absolute Basophil Count 0.03 k/cumm (0.0-0.2); Absolute Eosinophil Count 0.31 k/cumm (0.0-0.7); Basophils % 0.2; Eosinophils % 1.9; HCT 41.6 % (36.0-46.0); HGB 13.8 g/dL (12.0-15.5); Immature Grans % 0.4; Lymphocytes % 17.4; Mean Corp. HGB Concentration 33.2 g/dL (32.0-36.0); Mean Corpuscular Volume 93.5 fL (80-95); Mean Platelet Volume 10.5 fL (8.0-11.0); Monocytes % 8.6; Neutrophils % 71.5; Platelet Count 307 x1000/uL (130-400); RBC 4.45 m/cumm (4.00-5.20); RBC Distribution Width 13.4 % (11.7-14.6); White Blood Cell Count 16.24 k/cumm (4.4-10.8)
[2018-09-02 07:34] LABS: Absolute Lymphocyte Count 2.83 k/cumm (1.2-3.4); Absolute Neutrophil Count 11.61 k/cumm (1.2-6.7)
[2018-09-02 07:40] VITALS: BP 167/97; PULSE 80; RESP 20; TEMP 37.4; O2SAT 96
[2018-09-02 08:26] LABS: ALT 29 U/L (12-78); AST 16 U/L (15-37); Albumin 3.6 g/dL (3.4-5.0); Alkaline Phosphatase 82 U/L (46-116); Amylase 20 U/L (25-115); Anion Gap 11.4 mmol/L (3-11); BUN 8 mg/dL (7-18); Bilirubin, Total 0.5 mg/dL (0.2-1.0); CO2 21.6 mmol/L (21.0-32.0); CREATININE 0.65 mg/dL (0.55-1.02); Calcium 8.9 mg/dL (8.5-10.1); Chloride 107 mmol/L (98-107); Glucose 128 mg/dL (70-100); Lipase 82 U/L (73-393); Potassium 3.8 mmol/L (3.5-5.1); Sodium 140 mmol/L (136-145); Total Protein 7.2 g/dL (6.4-8.2)
[2018-09-02] MEDS: Docusate Sodium 100 MG CAP PO ×2 (08:45→13:36)
--- NOTE | 2018-09-02 09:25 | DI.CT_ITS ---
SYMPTOM/DIAGNOSIS: S/P LAP JOHANNA, VOMITING, ELEVATED WBC ABDOMEN AND PELVIC CT: CT examination of the abdomen and pelvis was performed with a bolus infusion of 100 cc's of Omnipaque 350. The patient has reportedly had a recent laparoscopic cholecystectomy. Small fluid and gas collections in anterior abdominal wall on the right are noted consistent with the recent procedure. No free intraperitoneal air. There is a small quantity of free intraperitoneal fluid. There is mild fat edema in the gallbladder fossa. No gross collection or abscess seen. Vascular clips noted in the gallbladder fossa. No biliary dilatation is seen. Pancreas appears normal. Liver and spleen unremarkable except for probable mild hepatic steatosis. Adrenals and kidneys unremarkable in appearance with incidental small presumed bilateral renal cysts. Abdominal aorta is of normal diameter and no major vascular abnormality is seen. No abdominal or pelvic adenopathy is seen. Appendix appears normal. No evidence of diverticulitis. CONCLUSION: Post cholecystectomy findings. Slight scattered quantities of free intraperitoneal fluid which are nonspecific. No abscess identified. No evidence of biliary dilatation.
[2018-09-02] MEDS: Omnipaque 350 MG/ML 50 ML BTL IJ ×2 (09:28→09:29)
[2018-09-02 09:40] LABS: Bilirubin Negative (Negative); Blood Trace-intact (Negative); Clarity Clear; Glucose Negative (Negative); Ketones Negative (Negative); Leukocyte Esterase Negative (Negative); Nitrite Negative (Negative); Specific Gravity 1.015 (1.005-1.025); Urobilinogen 0.2 EU/dL (Up TO 0.2); pH 7.5 (5-8)
[2018-09-02 09:50] LABS: Bacteria Rare HPF (Negative); C & S Indicated? No/Sq. Contamination; Casts Negative LPF (Negative); Crystals Negative HPF (Negative); Epithelial Cells Moderate HPF (Negative); Mucus Negative (Negative); Other Cells Negative (Negative); RBC 0-2 (0-2); WBC 0-2 HPF (0-5)
--- NOTE | 2018-09-02 10:16 | PGE_ITS ---
Date of Service Date of service: 09/02/18 Time of Service: 10:13 Assessment and Plan (1) Dehydration: Current visit: Yes Status: Acute pt still feels the same as yest. doesn't't want to eat. Min abdom pain. very nauseous. elevated wbc will check CT cxr neg ua neg incisions are c/d/i no new meds no s/s DVT no breakdown will check CT (2) Elevated WBC count: Current visit: Yes Status: Acute (3) PONV (postoperative nausea and vomiting): Current visit: Yes Status: Acute (4) S/P laparoscopic cholecystectomy: Current visit: No Status: Acute Subjective Patient reports: voiding w/o difficulty, flatus, no bowel movement and nausea Interval history since last seen: still says she doesn't feel good. can't walk. still elevated wbc# UA neg. She says she did pass some gas. very nauseated and doesn't want to eat. says she's not in that much pain. isolated to RUQ. incisions sites are c/d.Pt is doing well. no headaches. No CP or SOB. no productive cough. no dysuria. no leg pain or swelling. Exam Const General: cooperative, healthy appearing, comfortable, no acute distress, well developed and well groomed Nutritional Appearance: average body habitus and well nourished Orientation: alert, awake and oriented x3 HENMT Head: normal to inspection, normocephalic and atraumatic Ears: hearing grossly normal bilaterally and external ears normal General nose exam: external nose normal Face and sinus: normal facial exam and sinuses nontender Mouth: oral mucosae normal, lip normal, tongue normal and moist mucous membranes Teeth and gingiva: dentition normal Eyes General: appearance normal, both eyes and all related structures Conjunctivae: conjunctivae normal Sclera: sclerae normal Pupils: PERRL Neck Neck: normal visual inspection and full ROM Chest Chest: normal inspection of the chest Resp Effort & Inspection: normal respiratory effort, able to speak in complete sentences, no cough, no nasal flaring, not tachypneic and no use of accessory muscles Auscultation: clear to auscultation bilaterally, no rales, no rhonchi and no wheezes Cardio Jugular venous pressure: no JVD Rate: regular rate Rhythm: regular rhythm GI Inspection: normal to inspection, abdominal wall ecchymosis, no edema, non- distended and incision (c/d/i) Palpation: soft, no masses, nontender and No ascites Auscultation: normal bowel sounds Skin General skin exam: no rashes or lesions noted Trauma: no lacerations or abrasions Neuro General: alert, oriented x3, oriented, gait normal, moves all extremities, no focal motor deficits and CN's II-XI intact bilaterally Cognition: normal cognition Speech: speech normal Gait: normal gait Motor: muscle tone normal throughout Extrem General: normal to inspection, full ROM and no clubbing, cyanosis or edema Psych Appearance: grossly normal and well kempt Mental Status: mental status grossly normal Speech and Movement: speech and movement normal Affect: normal affect Objective Objective Clinical Data: Abnormal lab results 09/01/18 09/01/18 09/01/18 Range/Units 12:00 12:00 14:00 WBC 22.14 H (4.4-10.8) k/cumm Absolute Neutrophils 17.49 H (1.2-6.7) k/cumm Absolute Monocytes 1.33 H (0.11-0.7) k/cumm Anion Gap 12.7 H (3-11) mmol/L Glucose 129 H (70-100) mg/dL Lactate 1.8 H (0.6-1.4) mmol/l Total Protein 8.6 H (6.4-8.2) g/dL Amylase (25-115) U/L Urine Blood (Negative) 09/01/18 09/02/18 09/02/18 Range/Units 14:25 07:20 07:20 WBC 18.38 H 16.24 H (4.4-10.8) k/cumm Absolute Neutrophils 13.80 H 11.61 H (1.2-6.7) k/cumm Absolute Monocytes 1.64 H 1.40 H (0.11-0.7) k/cumm Anion Gap 11.4 H (3-11) mmol/L Glucose 128 H (70-100) mg/dL Lactate (0.6-1.4) mmol/l Total Protein (6.4-8.2) g/dL Amylase 20 L (25-115) U/L Urine Blood (Negative) 09/02/18 09/02/18 Range/Units 07:20 09:10 WBC (4.4-10.8) k/cumm Absolute Neutrophils (1.2-6.7) k/cumm Absolute Monocytes (0.11-0.7) k/cumm Anion Gap (3-11) mmol/L Glucose (70-100) mg/dL Lactate 1.5 H (0.6-1.4) mmol/l Total Protein (6.4-8.2) g/dL Amylase (25-115) U/L Urine Blood Trace-intact H (Negative) Vital Signs Temperature 37.4 C 09/02/18 07:40 Temperature Source Tympanic 09/02/18 07:40 Pulse 80 09/02/18 07:40 Pulse Rhythm Regular 09/01/18 20:22 Respiratory Rate 20 09/02/18 07:40 Respiratory Effort Non-Labored 09/01/18 20:22 Respiratory Depth Normal 09/01/18 20:22 Respiratory Pattern Normal 09/01/18 20:22 Blood Pressure 167/97 H 09/02/18 07:40 Pulse Oximetry 96 09/02/18 07:40 Oxygen Delivery Method Room Air 09/02/18 07:40 Oxygen Flow Rate 0 09/02/18 07:40 Pain Level 0 09/02/18 07:55 Intake & Output 09/01/18 09/01/18 09/02/18 11:59 23:59 11:59 Intake Total 1999 2451.5 / 2451.5 Output Total 1500 / 1500 2925 / 2925 Balance 500 / 500 -473.5 / -473.5 Weight 85.1 kg 85.1 kg Intake: IV 1999 2101.5 / 2101.5 Oral 350 / 350 Output: Urine 1500 / 1500 2925 / 2925 Other: Urine Color Yellow Light Shruti Urine Appearance Clear Clear Urine Odor Normal Emesis Description None Voiding Methods Toilet Toilet Laboratory Results WBC 16.24 k/cumm (4.4-10.8) H 09/02/18 07:20 RBC 4.45 m/cumm (4.00-5.20) 09/02/18 07:20 Hgb 13.8 g/dL (12.0-15.5) 09/02/18 07:20 Hct 41.6 % (36.0-46.0) 09/02/18 07:20 MCV 93.5 fL (80-95) 09/02/18 07:20 MCH 31.0 pg (27.0-33.0) 09/02/18 07:20 MCHC 33.2 g/dL (32.0-36.0) 09/02/18 07:20 RDW 13.4 % (11.7-14.6) 09/02/18 07:20 Plt Count 307 x1000/uL (130-400) 09/02/18 07:20 MPV 10.5 fL (8.0-11.0) 09/02/18 07:20 Immature Gran % 0.4 09/02/18 07:20 Neutrophils % 71.5 09/02/18 07:20 Lymphocytes % 17.4 09/02/18 07:20 Atypical Lymphs % 4 09/01/18 12:00 Monocytes % 8.6 09/02/18 07:20 Eosinophils % 1.9 09/02/18 07:20 Basophils % 0.2 09/02/18 07:20 Absolute Neutrophils 11.61 k/cumm (1.2-6.7) H 09/02/18 07:20 Absolute Lymphocytes 2.83 k/cumm (1.2-3.4) 09/02/18 07:20 Absolute Monocytes 1.40 k/cumm (0.11-0.7) H 09/02/18 07:20 Absolute Eosinophils 0.31 k/cumm (0.0-0.7) 09/02/18 07:20 Absolute Basophils 0.03 k/cumm (0.0-0.2) 09/02/18 07:20 Differential Comment Manual differential 09/01/18 12:00 RBC Morphology Normal 09/01/18 12:00 Sodium 140 mmol/L (136-145) 09/02/18 07:20 Potassium 3.8 mmol/L (3.5-5.1) 09/02/18 07:20 Chloride 107 mmol/L (98-107) 09/02/18 07:20 Carbon Dioxide 21.6 mmol/L (21.0-32.0) 09/02/18 07:20 Anion Gap 11.4 mmol/L (3-11) H 09/02/18 07:20 BUN 8 mg/dL (7-18) 09/02/18 07:20 Creatinine 0.65 mg/dL (0.55-1.02) 09/02/18 07:20 Estimated GFR/1.73 m2 >= 60.00 (mL/min/1.73m2) 09/02/18 07:20 Glucose 128 mg/dL (70-100) H 09/02/18 07:20 Lactate 1.5 mmol/l (0.6-1.4) H 09/02/18 07:20 Calcium 8.9 mg/dL (8.5-10.1) 09/02/18 07:20 Magnesium 2.4 mg/dL (1.8-2.4) 09/01/18 12:00 Total Bilirubin 0.5 mg/dL (0.2-1.0) 09/02/18 07:20 AST 16 U/L (15-37) 09/02/18 07:20 ALT 29 U/L (12-78) 09/02/18 07:20 Alkaline Phosphatase 82 U/L (46-116) 09/02/18 07:20 Troponin I < 0.02 ng/mL (0.00-0.06) 09/01/18 12:00 Total Protein 7.2 g/dL (6.4-8.2) 09/02/18 07:20 Albumin 3.6 g/dL (3.4-5.0) 09/02/18 07:20 Amylase 20 U/L (25-115) L 09/02/18 07:20 Lipase 82 U/L (73-393) 09/02/18 07:20 Urine Color Yellow (Yellow) 09/02/18 09:10 Urine Clarity Clear 09/02/18 09:10 Urine pH 7.5 (5-8) 09/02/18 09:10 Ur Specific [place] 1.015 (1.005-1.025) 09/02/18 09:10 Urine Protein Negative mg/dL (Negative) 09/02/18 09:10 Urine Ketones Negative mg/dL (Negative) 09/02/18 09:10 Urine Blood Trace-intact (Negative) H 09/02/18 09:10 Urine Nitrite Negative (Negative) 09/02/18 09:10 Urine Bilirubin Negative (Negative) 09/02/18 09:10 Urine Urobilinogen 0.2 EU/dL (Up TO 0.2) 09/02/18 09:10 Ur Leukocyte Esterase Negative (Negative) 09/02/18 09:10 Urine RBC 0-2 (0-2) 09/02/18 09:10 Urine WBC 0-2 HPF (0-5) 09/02/18 09:10 Ur Epithelial Cells Moderate HPF (Negative) 09/02/18 09:10 Urine Crystals Negative HPF (Negative) 09/02/18 09:10 Urine Bacteria Rare HPF (Negative) 09/02/18 09:10 Urine Casts Negative LPF (Negative) 09/02/18 09:10 Urine Mucus Negative (Negative) 09/02/18 09:10 Urine Other Negative (Negative) 09/02/18 09:10 Ur Culture Indicated? No/sq. contamination 09/02/18 09:10 Urine Glucose Negative mg/dL (Negative) 09/02/18 09:10
--- NOTE | 2018-09-02 11:01 | W.COLOREPORT ---
Date of service: 09/02/18 Time of Service: 11:01 Colonoscopy Report Date of procedure: 09/02/18 Pre-op diagnosis general: crc SCreen Post-op diagnosis procedure note: other (polyps x4 ) Procedure: CE w/ mult polypectomy Surgeon: Katelynn Jones Anesthesia proc note operative: GETA Estimated blood loss (mL): 5 Pathology: other Complications: None Disposition: same day Indications: screen Prep: Miralax Retraction Time: 20 mins Findings: camp guard polyps including one lg polyp 70cm. this is at least 1cm. this area was tatooed Procedure Description: After informed consent was obtained the patient was taken to the procedure room and placed in a left decubitous position. Monitors were applied and a time out was done. The patients name, date of , procedure, allergies to medications and metal in their body was reviewed. The patient was then sedated. Once sedated and comfortable a rectal exam was done. External exam + hemorrrhoids. He has a hx of perirectal abcess. He c/o conitnued drainage. He has a 2mm blin sinus/area of tunneling. It was probed adn does not connect/communicate w/ the rectum Internal exam revealed a normal sphincter tone and no palpable masses. The prostate nl. . The scope was then introduced and retrofelexed. No internal hemorrhoids were identified. The scope was then advanced to the cecum at 80cm w/ minimal difficulty. The TI and appendiceal orifice were identified. The prep was good. The scope was then slowly retracted over 20 minutes back into the rectum. A polyp was found at 30 x1 20cm x 2 and in the rectum. This was removed with a cold biting forceps. All of the specimen was retrieved. This will be sent to pathology. There is no bleeding noted from the polypectomy site. There was a lg polyp found at 70cm. this was removed with a hot snare and the specimen retrieved. no bleeding noted. This polyp is quite lg and the area is tattooed. The scope was removed and the patient was woken up and taken back to Same day surgery in stable condition. The patient tolerated the procedure well and there were no immediate complications. Follow up: The patient should follow up in 1 years unless they develop changes in bowel habits or other new gastrointestinal complaints.
--- NOTE | 2018-09-02 11:08 | COLE_ITS ---
Date of service: 09/02/18 Time of Service: 11:01 Colonoscopy Report Date of procedure: 09/02/18 Pre-op diagnosis general: crc SCreen Post-op diagnosis procedure note: other (polyps x4 ) Procedure: CE w/ mult polypectomy Surgeon: Katelynn Jones Anesthesia proc note operative: GETA Estimated blood loss (mL): 5 Pathology: other Complications: None Disposition: same day Indications: screen Prep: Miralax Retraction Time: 20 mins Findings: sanitation officer polyps including one lg polyp 70cm. this is at least 1cm. this area was tatooed Procedure Description: After informed consent was obtained the patient was taken to the procedure room and placed in a left decubitous position. Monitors were applied and a time out was done. The patients name, date of , procedure, allergies to medications and metal in their body was reviewed. The patient was then sedated. Once sedated and comfortable a rectal exam was done. External exam + hemorrrhoids. He has a hx of perirectal abcess. He c/o conitnued drainage. He has a 2mm blin sinus/area of tunneling. It was probed adn does not con nect/communicate w/ the rectum Internal exam revealed a normal sphincter tone and no palpable masses. The prostate nl. . The scope was then introduced and retrofelexed. No internal hemorrhoids were identified. The scope was then advanced to the cecum at 80cm w/ minimal difficulty. The TI and appendiceal orifice were identified. The prep was good. The scope was then slowly retracted over 20 minutes back into the rectum. A polyp was found at 30 x1 20cm x 2 and in the rectum. This was removed with a cold biting forceps. All of the specimen was retrieved. This will be sent to pathology. There is no bleeding noted from the polypectomy site. There was a lg polyp found at 70cm. this was removed with a hot snare and the specimen retrieved. no bleeding noted. This polyp is quite lg and the area is tattooed. The scope was removed and the patient was woken up and taken back to Same day surgery in stable condition. The patient tolerated the procedure well and there were no immediate complications. Follow up: The patient should follow up in 1 years unless they develop changes in bowel habits or other new gastrointestinal complaints.
--- NOTE | 2018-09-02 12:31 | PHARADMIT ---
Admission Pharmacy Clinical Review PONV Code Status Full Code Current Weight Wgt- 85.1 kg Renally Cleared and Narrow Therapeutic Index Meds CrCl~ 78.26 mL/min Meds-OK QTc Value / Action Taken QTc-429 (Protonix, ) BP Control, Fever BP- 167/97 Tmax- 38.0C Electrolytes reviewed Na- 140 K+3.8 Mag-2.4 DVT Prophylaxis Lovenox 40mg Opiate Usage / Scheduled Bowel Regimen Ordered Yes Yes Plt/SCr for Heparin / Enoxaparin Plts-307 SCr-0.65 INR for Warfarin na H/H stable, WBC/Bands H&H- 13.8/41.6 WBC-16.24 Antibiotic appropriateness none Cultures and Sensitivities none Surgical ABX d/c within 24 hr na DM control / Insulin Dosing BG-128 Heart Failure (Check EF%) (ANJU's, B-Block, Diuretics) none IV to PO Switch No Home Meds Reviewed Depakote, Topamax Home Meds Not Ordered APAP, Acetylcysteine, Lipitor, Ibuprofen EpiPen, Comments
--- NOTE | 2018-09-02 13:39 | PDOC.CMIN ---
- If Service Date Differs Date of service: 09/02/18 Time of Service: 13:39 Care Management Initial Assess REASON FOR HOSPITALIZATION:: S/P Lap Martha PAST MEDICAL HISTORY/PAST SURGICAL HISTORY:: Tenosynovitis (Chronic). Seizures (Chronic). Obstructive sleep apnea of adult (Chronic). Hypothyroidism (Chronic). Hyperlipidemia (Chronic). Cervical radiculopathy (Chronic). Carpal tunnel syndrome, left upper limb (Chronic). Allergic rhinitis (Chronic). H/O gynecological procedure (Resolved). S/P laparoscopic cholecystectomy (Acute ~08/31/18). History of ear, nose, and throat (ENT) surgery (Resolved). Hx of myomectomy (Resolved). S/P total hysterectomy (Inactive) PREVIOUS FUNCTIONAL STATUS/SOCIAL/FAMILY SUPPORTS:: Matilda resides in [place] with her younger daughter Melanie, and Melanie's two children. Matilda reports that she sees her Ex- frequently and that they remain very close and supportive of one another. Matilda is independent at baseline, drives, and manages ADL's CURRENT FUNCTIONAL STATUS:: Currently Matilda is lying in bed, she is pleasant and receptive to discussion. ADVANCE DIRECTIVES:: None on file Has patient been provided with information about the portal?: Yes Did the patient sign up for the portal?: No CODE STATUS:: Full Code INSURANCE COVERAGE / FINANCIAL ISSUES:: [employer] CURRENT HOME/COMMUNITY SERVICES/EQUIPMENT:: Currently Matilda has a therapist in the community. She also has no DME at this time. PRIMARY CARE PHYSICIAN:: Anna Levine POTENTIAL DISCHARGE NEEDS:: F/U appointment with PCP PATIENT/FAMILY EDUCATION NEEDS:: Review DC instructions, any limitations, and ongoing DC planning discussion. Discuss 'Ask Me Three' ANTICIPATED BARRIERS TO DISCHARGE:: None identified at this time TRANSPORTATION:: Via private vehicle with [employer] PLAN:: Matilda will return home with no anticipated services once medically cleared. She will F/U with PCP and plan of care as prescribed. Matilda's daughter Melanie will transport when ready.
--- NOTE | 2018-09-02 15:00 | CHAPLAIN ---
Matilda was still uncomfortable when I visited with her on this morning, but said she was not longer vomiting so that felt better. Her daughter and grandson were visiting with her. Another grandson is autistic and does not want to come to the hospital, according to Matilda's daughter, but is concerned about his grandmother. Matilda lives very close to her grandsons and sees them every day.
[2018-09-02 15:57] VITALS: BP 158/89; PULSE 75; RESP 19; TEMP 37.3; O2SAT 95
[2018-09-02] MEDS: Enoxaparin 40 MG/0.4 ML SYR SC (16:03)
[2018-09-02] MEDS: Pantoprazole 40 MG VIAL IVP (16:03)
[2018-09-02 16:22] LABS: Procalcitonin, S <0.10 ng/mL (<=0.15)
--- NOTE | 2018-09-02 17:08 | W.PM.PROGNOT ---
Date of Service Date of service: 09/02/18 Time of Service: 17:09 Assessment and Plan (1) Leukocytosis: Current visit: Yes Status: Acute A\\ Leukocytosis s/p Lap. Martha. XRAY- negative CT scan today- negative No source of infection noted. Inflammatory? WBC count, PLT all slowly decreasing but its slowly P\\ Continue supportive care Qualifiers: Leukocytosis type: lymphocytosis Qualified Code(s): D72.820 - Lymphocytosis (symptomatic) (2) PONV (postoperative nausea and vomiting): Current visit: Yes Status: Acute A\\ Still feeling nauseated but better. No emesis so far today Has history of Heart Burn and GERD P\\ Add Carafate Check ECG Subjective Interval history since last seen: Still feeling quizy. No abdominal pain. No fevers,no chills. Has been up and walking a little bit. Drinking some fluids. Not much Exam Resp Effort & Inspection: normal respiratory effort Auscultation: clear to auscultation bilaterally Cardio Rate: regular rate Rhythm: regular rhythm Heart Sounds: no click, no gallops and no murmurs GI Inspection: incision (c/d/i with bruising) Palpation: soft, no hepatosplenomegaly and nontender Auscultation: normal bowel sounds Objective Objective Clinical Data: Abnormal lab results 09/02/18 09/02/18 09/02/18 Range/Units 07:20 07:20 07:20 WBC 16.24 H (4.4-10.8) k/cumm Absolute Neutrophils 11.61 H (1.2-6.7) k/cumm Absolute Monocytes 1.40 H (0.11-0.7) k/cumm Anion Gap 11.4 H (3-11) mmol/L Glucose 128 H (70-100) mg/dL Lactate 1.5 H (0.6-1.4) mmol/l Amylase 20 L (25-115) U/L Urine Blood (Negative) 09/02/18 Range/Units 09:10 WBC (4.4-10.8) k/cumm Absolute Neutrophils (1.2-6.7) k/cumm Absolute Monocytes (0.11-0.7) k/cumm Anion Gap (3-11) mmol/L Glucose (70-100) mg/dL Lactate (0.6-1.4) mmol/l Amylase (25-115) U/L Urine Blood Trace-intact H (Negative) Vital Signs Temperature 99.1 F 09/02/18 15:57 Temperature Source Tympanic 09/02/18 15:57 Pulse 75 09/02/18 15:57 Pulse Rhythm Regular 09/02/18 07:55 Respiratory Rate 19 09/02/18 15:57 Respiratory Effort Non-Labored 09/02/18 07:55 Respiratory Depth Normal 09/02/18 07:55 Respiratory Pattern Normal 09/02/18 07:55 Blood Pressure 158/89 H 09/02/18 15:57 Pulse Oximetry 95 09/02/18 15:57 Oxygen Delivery Method Room Air 09/02/18 15:57 Oxygen Flow Rate 0 09/02/18 15:57 Pain Level 0 09/02/18 07:55 Intake & Output 09/01/18 09/02/18 09/02/18 23:59 11:59 23:59 Intake Total 1999 2711.5 / 3836.5 1125 / 3836.5 Output Total 1500 / 1500 3375 / 4075 700 / 4075 Balance 500 / 500 -663.5 / -238.5 425 / -238.5 Weight 187 lb 9.814 oz Intake: IV 1999 2121.5 / 3141.5 1020 / 3141.5 Oral 590 / 695 105 / 695 Output: Urine 1500 / 1500 3375 / 4075 700 / 4075 Other: Urine Color Yellow Yellow Yellow Urine Appearance Clear Clear Clear Urine Odor Normal None Comment Void x1 in the toilet. Emesis Description None Voiding Methods Toilet Toilet Toilet Laboratory Results WBC 16.24 k/cumm (4.4-10.8) H 09/02/18 07:20 RBC 4.45 m/cumm (4.00-5.20) 09/02/18 07:20 Hgb 13.8 g/dL (12.0-15.5) 09/02/18 07:20 Hct 41.6 % (36.0-46.0) 09/02/18 07:20 MCV 93.5 fL (80-95) 09/02/18 07:20 MCH 31.0 pg (27.0-33.0) 09/02/18 07:20 MCHC 33.2 g/dL (32.0-36.0) 09/02/18 07:20 RDW 13.4 % (11.7-14.6) 09/02/18 07:20 Plt Count 307 x1000/uL (130-400) 09/02/18 07:20 MPV 10.5 fL (8.0-11.0) 09/02/18 07:20 Immature Gran % 0.4 09/02/18 07:20 Neutrophils % 71.5 09/02/18 07:20 Lymphocytes % 17.4 09/02/18 07:20 Atypical Lymphs % 4 09/01/18 12:00 Monocytes % 8.6 09/02/18 07:20 Eosinophils % 1.9 09/02/18 07:20 Basophils % 0.2 09/02/18 07:20 Absolute Neutrophils 11.61 k/cumm (1.2-6.7) H 09/02/18 07:20 Absolute Lymphocytes 2.83 k/cumm (1.2-3.4) 09/02/18 07:20 Absolute Monocytes 1.40 k/cumm (0.11-0.7) H 09/02/18 07:20 Absolute Eosinophils 0.31 k/cumm (0.0-0.7) 09/02/18 07:20 Absolute Basophils 0.03 k/cumm (0.0-0.2) 09/02/18 07:20 Differential Comment Manual differential 09/01/18 12:00 RBC Morphology Normal 09/01/18 12:00 Sodium 140 mmol/L (136-145) 09/02/18 07:20 Potassium 3.8 mmol/L (3.5-5.1) 09/02/18 07:20 Chloride 107 mmol/L (98-107) 09/02/18 07:20 Carbon Dioxide 21.6 mmol/L (21.0-32.0) 09/02/18 07:20 Anion Gap 11.4 mmol/L (3-11) H 09/02/18 07:20 BUN 8 mg/dL (7-18) 09/02/18 07:20 Creatinine 0.65 mg/dL (0.55-1.02) 09/02/18 07:20 Estimated GFR/1.73 m2 >= 60.00 (mL/min/1.73m2) 09/02/18 07:20 Glucose 128 mg/dL (70-100) H 09/02/18 07:20 Lactate 1.5 mmol/l (0.6-1.4) H 09/02/18 07:20 Calcium 8.9 mg/dL (8.5-10.1) 09/02/18 07:20 Magnesium 2.4 mg/dL (1.8-2.4) 09/01/18 12:00 Total Bilirubin 0.5 mg/dL (0.2-1.0) 09/02/18 07:20 AST 16 U/L (15-37) 09/02/18 07:20 ALT 29 U/L (12-78) 09/02/18 07:20 Alkaline Phosphatase 82 U/L (46-116) 09/02/18 07:20 Troponin I < 0.02 ng/mL (0.00-0.06) 09/01/18 12:00 Total Protein 7.2 g/dL (6.4-8.2) 09/02/18 07:20 Albumin 3.6 g/dL (3.4-5.0) 09/02/18 07:20 Amylase 20 U/L (25-115) L 09/02/18 07:20 Lipase 82 U/L (73-393) 09/02/18 07:20 Urine Color Yellow (Yellow) 09/02/18 09:10 Urine Clarity Clear 09/02/18 09:10 Urine pH 7.5 (5-8) 09/02/18 09:10 Ur Specific [place] 1.015 (1.005-1.025) 09/02/18 09:10 Urine Protein Negative mg/dL (Negative) 09/02/18 09:10 Urine Ketones Negative mg/dL (Negative) 09/02/18 09:10 Urine Blood Trace-intact (Negative) H 09/02/18 09:10 Urine Nitrite Negative (Negative) 09/02/18 09:10 Urine Bilirubin Negative (Negative) 09/02/18 09:10 Urine Urobilinogen 0.2 EU/dL (Up TO 0.2) 09/02/18 09:10 Ur Leukocyte Esterase Negative (Negative) 09/02/18 09:10 Urine RBC 0-2 (0-2) 09/02/18 09:10 Urine WBC 0-2 HPF (0-5) 09/02/18 09:10 Ur Epithelial Cells Moderate HPF (Negative) 09/02/18 09:10 Urine Crystals Negative HPF (Negative) 09/02/18 09:10 Urine Bacteria Rare HPF (Negative) 09/02/18 09:10 Urine Casts Negative LPF (Negative) 09/02/18 09:10 Urine Mucus Negative (Negative) 09/02/18 09:10 Urine Other Negative (Negative) 09/02/18 09:10 Ur Culture Indicated? No/sq. contamination 09/02/18 09:10 Urine Glucose Negative mg/dL (Negative) 09/02/18 09:10
[2018-09-02] MEDS: Polyethylene Glycol 3350 17 GM PACKET PO (18:13)
[2018-09-02] MEDS: Sucralfate 1 GM TAB PO ×2 (18:13→21:05)
[2018-09-02] MEDS: Bisacodyl 10 MG SUPP PR (18:18)
--- NOTE | 2018-09-02 20:00 | DI.RAD_ITS ---
SYMPTOM/DIAGNOSIS: LEUKOCYTOSIS, VOMITING, ? ASPIRATION PA AND LATERAL CHEST: The heart is normal in size. The lungs are clear. The mediastinal structures and pleura appear intact. CONCLUSION: Normal chest.
--- NOTE | 2018-09-02 20:16 | DI.VRAD_ITS ---
EXAM: XR Chest, 2 Views EXAM DATE/TIME: 09/02/2018 6:03 PM CLINICAL HISTORY: 57 years old, female; Signs and symptoms; Other: Leukocytosis and vomiting TECHNIQUE: Imaging protocol: XR of the chest, 2 views. COMPARISON: CR XR ABD FLAT UPRIGHT PA CHEST 09/01/2018 12:45 PM FINDINGS: Lungs: See Heart/mediastinum Finding. Pleural space: Unremarkable. No pleural effusion. No pneumothorax. Heart/Mediastinum: The heart and mediastinal contours are normal. The lungs are clear. The bony thorax is unremarkable. Bones/joints: See Heart/mediastinum Finding. IMPRESSION: Normal chest. Dictated and Authenticated by: Oumar Boateng MD. Ordering:NORRIS Church MD
[2018-09-02] MEDS: Divalproex 500 MG TABEC PO (21:04)
[2018-09-02] MEDS: Topiramate 100 MG TAB 200 MG PO (21:05)
[2018-09-03 00:03] VITALS: BP 150/80; PULSE 74; RESP 18; TEMP 37.1; O2SAT 94
[2018-09-03] MEDS: Sucralfate 1 GM TAB PO ×4 (03:15→21:08)
[2018-09-03 03:20] VITALS: BP 168/78; PULSE 80; RESP 21; TEMP 37.5; O2SAT 98
[2018-09-03] MEDS: Lactated Ringers 1,000 ML 150 ML IV (05:57)
[2018-09-03 07:20] LABS: Lactate-non-spesis 1.2 mmol/l (0.6-1.4)
[2018-09-03 07:26] LABS: Abs Immature Grans 0.05 k/cumm (0.0-0.09); Absolute Basophil Count 0.04 k/cumm (0.0-0.2); Absolute Eosinophil Count 0.98 k/cumm (0.0-0.7); Absolute Lymphocyte Count 3.05 k/cumm (1.2-3.4); Basophils % 0.3; Eosinophils % 7.1; HCT 42.2 % (36.0-46.0); HGB 14.2 g/dL (12.0-15.5); Immature Grans % 0.4; Lymphocytes % 22.1; Mean Corp. HGB Concentration 33.6 g/dL (32.0-36.0); Mean Corpuscular Hemoglobin 31.2 pg (27.0-33.0); Mean Corpuscular Volume 92.7 fL (80-95); Mean Platelet Volume 10.5 fL (8.0-11.0); Monocytes % 8.1; Platelet Count 314 x1000/uL (130-400); RBC 4.55 m/cumm (4.00-5.20); RBC Distribution Width 13.2 % (11.7-14.6); White Blood Cell Count 13.78 k/cumm (4.4-10.8)
[2018-09-03 07:28] LABS: Absolute Monocyte Count 1.12 k/cumm (0.11-0.7); Absolute Neutrophil Count 8.54 k/cumm (1.2-6.7)
[2018-09-03 07:30] VITALS: BP 145/90; PULSE 76; RESP 20; TEMP 37.3; O2SAT 96
[2018-09-03] MEDS: Polyethylene Glycol 3350 17 GM PACKET PO (08:37)
[2018-09-03] MEDS: Docusate Sodium 100 MG CAP PO ×3 (08:37→19:02)
--- NOTE | 2018-09-03 10:27 | W.PM.PROGNOT ---
Date of Service Date of service: 09/03/18 Time of Service: 10:27 Assessment and Plan (1) Leukocytosis: Current visit: Yes Status: Acute A\\ Improving without antibiotics so most likely reactive/inflammatory response to Surgery/ Intractable N/V and constipation P\\ Check CBC once more tomorrow and if normal will D/C home Qualifiers: Leukocytosis type: lymphocytosis Qualified Code(s): D72.820 - Lymphocytosis (symptomatic) (2) PONV (postoperative nausea and vomiting): Current visit: Yes Status: Acute A\\ Most likley multifactorial. No IV pain meds intraop. Is a chronic Marijuana user and has chronic Nausea at home. Severe constipation P\\ Continue to monitor Advance diet SL IV at this point Discussed possible cyclic vomiting syndrome with patient due to chronic marijuana use. Recommend she stop smoking marijuana once discharged to home Needs to get up out of bed to chair and ambulate in hallway TID (3) Hypertension: Current visit: Yes Status: Chronic A\\ Mild HTN in acute setting of N/V SBP between 140 to 170 P\\ Recommend to patient to buy and home BP cuff and check BP's 3 times a day, not affter waking up and not after a meal. record and then follow up with PCP for possible HTN medications. Qualifiers: Hypertension type: unspecified Qualified Code(s): I10 - Essential (primary) hypertension Subjective Interval history since last seen: Patient feeling tired. No motivation to get up and out of bed. Had a large soft BM yesterday and no Nausea is better. Tolerating a clear liquid diet. Still not complaining of any abdominal pain. Great urine output. Exam Resp Effort & Inspection: normal respiratory effort Auscultation: clear to auscultation bilaterally Cardio Rate: regular rate Rhythm: regular rhythm Heart Sounds: no gallops, no murmurs and no rubs GI Inspection: incision (c/d/i with some echymosis) Palpation: soft, no hepatosplenomegaly and nontender Auscultation: normal bowel sounds Abdomen image: 1. 2. 3. 4. Objective Objective Clinical Data: Abnormal lab results 09/03/18 Range/Units 07:07 WBC 13.78 H (4.4-10.8) k/cumm Absolute Neutrophils 8.54 H (1.2-6.7) k/cumm Absolute Monocytes 1.12 H (0.11-0.7) k/cumm Absolute Eosinophils 0.98 H (0.0-0.7) k/cumm Vital Signs Temperature 99.1 F 09/03/18 07:30 Temperature Source Tympanic 09/03/18 07:30 Pulse 76 09/03/18 07:30 Pulse Rhythm Regular 09/03/18 07:20 Respiratory Rate 20 09/03/18 07:30 Respiratory Effort Non-Labored 09/03/18 07:20 Respiratory Depth Normal 09/03/18 07:20 Respiratory Pattern Normal 09/03/18 07:20 Blood Pressure 145/90 H 09/03/18 07:30 Pulse Oximetry 96 09/03/18 07:30 Oxygen Delivery Method Room Air 09/03/18 07:30 Oxygen Flow Rate 0 09/03/18 07:30 Pain Level 0 09/03/18 07:30 Comment 09/03/18 03:20 Intake & Output 09/02/18 09/02/18 09/03/18 11:59 23:59 11:59 Intake Total 2711.5 / 5606.5 2895 / 5606.5 208 / 2080 Output Total 3375 / 5375 2000 / 5375 3000 / 3000 Balance -663.5 / 231.5 895 / 231.5 -920 / -920 Intake: IV 2121.5 / 4141.5 2020 / 4141.5 1000 / 1000 Oral 590 / 1465 875 / 1465 1080 / 1080 Output: Urine 3375 / 5375 2000 / 5375 3000 / 3000 Other: Urine Color Yellow Yellow Straw Urine Appearance Clear Clear Clear Urine Odor Normal None None Comment Void x1 in the toilet. Void x1 in the toilet. Stool Size Copious Stool Characteristics Soft Voiding Methods Toilet Toilet Toilet Laboratory Results WBC 13.78 k/cumm (4.4-10.8) H 09/03/18 07:07 RBC 4.55 m/cumm (4.00-5.20) 09/03/18 07:07 Hgb 14.2 g/dL (12.0-15.5) 09/03/18 07:07 Hct 42.2 % (36.0-46.0) 09/03/18 07:07 MCV 92.7 fL (80-95) 09/03/18 07:07 MCH 31.2 pg (27.0-33.0) 09/03/18 07:07 MCHC 33.6 g/dL (32.0-36.0) 09/03/18 07:07 RDW 13.2 % (11.7-14.6) 09/03/18 07:07 Plt Count 314 x1000/uL (130-400) 09/03/18 07:07 MPV 10.5 fL (8.0-11.0) 09/03/18 07:07 Immature Gran % 0.4 09/03/18 07:07 Neutrophils % 62.0 09/03/18 07:07 Lymphocytes % 22.1 09/03/18 07:07 Atypical Lymphs % 4 09/01/18 12:00 Monocytes % 8.1 09/03/18 07:07 Eosinophils % 7.1 09/03/18 07:07 Basophils % 0.3 09/03/18 07:07 Absolute Neutrophils 8.54 k/cumm (1.2-6.7) H 09/03/18 07:07 Absolute Lymphocytes 3.05 k/cumm (1.2-3.4) 09/03/18 07:07 Absolute Monocytes 1.12 k/cumm (0.11-0.7) H 09/03/18 07:07 Absolute Eosinophils 0.98 k/cumm (0.0-0.7) H 09/03/18 07:07 Absolute Basophils 0.04 k/cumm (0.0-0.2) 09/03/18 07:07 Differential Comment Manual differential 09/01/18 12:00 RBC Morphology Normal 09/01/18 12:00 Sodium 140 mmol/L (136-145) 09/02/18 07:20 Potassium 3.8 mmol/L (3.5-5.1) 09/02/18 07:20 Chloride 107 mmol/L (98-107) 09/02/18 07:20 Carbon Dioxide 21.6 mmol/L (21.0-32.0) 09/02/18 07:20 Anion Gap 11.4 mmol/L (3-11) H 09/02/18 07:20 BUN 8 mg/dL (7-18) 09/02/18 07:20 Creatinine 0.65 mg/dL (0.55-1.02) 09/02/18 07:20 Estimated GFR/1.73 m2 >= 60.00 (mL/min/1.73m2) 09/02/18 07:20 Glucose 128 mg/dL (70-100) H 09/02/18 07:20 Lactate 1.2 mmol/l (0.6-1.4) 09/03/18 07:07 Calcium 8.9 mg/dL (8.5-10.1) 09/02/18 07:20 Magnesium 2.4 mg/dL (1.8-2.4) 09/01/18 12:00 Total Bilirubin 0.5 mg/dL (0.2-1.0) 09/02/18 07:20 AST 16 U/L (15-37) 09/02/18 07:20 ALT 29 U/L (12-78) 09/02/18 07:20 Alkaline Phosphatase 82 U/L (46-116) 09/02/18 07:20 Troponin I < 0.02 ng/mL (0.00-0.06) 09/01/18 12:00 Total Protein 7.2 g/dL (6.4-8.2) 09/02/18 07:20 Albumin 3.6 g/dL (3.4-5.0) 09/02/18 07:20 Amylase 20 U/L (25-115) L 09/02/18 07:20 Lipase 82 U/L (73-393) 09/02/18 07:20 Urine Color Yellow (Yellow) 09/02/18 09:10 Urine Clarity Clear 09/02/18 09:10 Urine pH 7.5 (5-8) 09/02/18 09:10 Ur Specific [place] 1.015 (1.005-1.025) 09/02/18 09:10 Urine Protein Negative mg/dL (Negative) 09/02/18 09:10 Urine Ketones Negative mg/dL (Negative) 09/02/18 09:10 Urine Blood Trace-intact (Negative) H 09/02/18 09:10 Urine Nitrite Negative (Negative) 09/02/18 09:10 Urine Bilirubin Negative (Negative) 09/02/18 09:10 Urine Urobilinogen 0.2 EU/dL (Up TO 0.2) 09/02/18 09:10 Ur Leukocyte Esterase Negative (Negative) 09/02/18 09:10 Urine RBC 0-2 (0-2) 09/02/18 09:10 Urine WBC 0-2 HPF (0-5) 09/02/18 09:10 Ur Epithelial Cells Moderate HPF (Negative) 09/02/18 09:10 Urine Crystals Negative HPF (Negative) 09/02/18 09:10 Urine Bacteria Rare HPF (Negative) 09/02/18 09:10 Urine Casts Negative LPF (Negative) 09/02/18 09:10 Urine Mucus Negative (Negative) 09/02/18 09:10 Urine Other Negative (Negative) 09/02/18 09:10 Ur Culture Indicated? No/sq. contamination 09/02/18 09:10 Urine Glucose Negative mg/dL (Negative) 09/02/18 09:10
[2018-09-03] MEDS: Lactated Ringers 1,000 ML 80 ML IV (12:50)
[2018-09-03] MEDS: Enoxaparin 40 MG/0.4 ML SYR SC (15:24)
[2018-09-03 16:19] VITALS: BP 150/72; PULSE 68; RESP 19; TEMP 36.7; O2SAT 95
--- NOTE | 2018-09-03 17:52 | PDOC.CMPRO ---
Care Management Progress Note S/O: Matilda was sleeping and I did not awaken her for a discussion. A: 57yo female admitted S/P Lap Appy P: Independent at baseline and will return home with no services when medically cleared for discharge.
[2018-09-03] MEDS: Topiramate 100 MG TAB 200 MG PO (21:08)
[2018-09-03] MEDS: Divalproex 500 MG TABEC PO (21:08)
[2018-09-03 23:50] VITALS: BP 151/88; PULSE 84; RESP 18; TEMP 37.2; O2SAT 96
[2018-09-04] MEDS: Ondansetron 4 MG/2 ML VIAL IVP (01:41)
[2018-09-04] MEDS: Normal Saline Flush 10 ML SYR IVP (01:41)
[2018-09-04] MEDS: Sucralfate 1 GM TAB PO ×2 (03:38→09:22)
[2018-09-04 07:30] VITALS: BP 116/79; PULSE 116; PULSE 98; RESP 20; TEMP 37.1; O2SAT 97
[2018-09-04] MEDS: Normal Saline 500 ML 1000 ML IV (08:22)
[2018-09-04 08:29] LABS: Abs Immature Grans 0.03 k/cumm (0.0-0.09); Absolute Basophil Count 0.03 k/cumm (0.0-0.2); Absolute Eosinophil Count 1.11 k/cumm (0.0-0.7); Basophils % 0.2; Eosinophils % 7.6; Immature Grans % 0.2; Lymphocytes % 24.6; Mean Corp. HGB Concentration 34.1 g/dL (32.0-36.0); Mean Corpuscular Hemoglobin 31.2 pg (27.0-33.0); Mean Corpuscular Volume 91.5 fL (80-95); Mean Platelet Volume 10.4 fL (8.0-11.0); Monocytes % 6.2; Neutrophils % 61.2; Platelet Count 336 x1000/uL (130-400); RBC 4.81 m/cumm (4.00-5.20); RBC Distribution Width 13.2 % (11.7-14.6); White Blood Cell Count 14.57 k/cumm (4.4-10.8)
[2018-09-04 08:30] LABS: Absolute Lymphocyte Count 3.58 k/cumm (1.2-3.4); Absolute Neutrophil Count 8.92 k/cumm (1.2-6.7)
[2018-09-04 08:48] LABS: Diff Comment Agrees w/ Instrument
[2018-09-04] MEDS: Polyethylene Glycol 3350 17 GM PACKET PO (08:59)
[2018-09-04] MEDS: Docusate Sodium 100 MG CAP PO (08:59)
[2018-09-04 09:19] VITALS: BP 123/87; PULSE 78; RESP 20; TEMP 37; O2SAT 96
[2018-09-04 09:26] VITALS: PULSE 87
--- NOTE | 2018-09-04 10:50 | W.PM.PROGNOT ---
Date of Service Date of service: 09/04/18 Time of Service: 10:00 Assessment and Plan (1) Leukocytosis: Current visit: Yes Status: Acute Stable, but not decreased. Neutrophils are about the same. Has increased monocytes and eosinophils. No fevers since admission. Second ECG normal P\\ D/C home and will have her come back and have another set of labs drawn on Wednesday to make sure everything is back to normal. Qualifiers: Leukocytosis type: lymphocytosis Qualified Code(s): D72.820 - Lymphocytosis (symptomatic) (2) Dehydration: Current visit: Yes Status: Acute Had tachycardia this am which resolved with fluid bolus Discussed with patient that she needs to drink 2 L of water a day to help from getting dehydrated (3) Irregular heart rate: Current visit: Yes Status: Acute Sinus Rythm on my evaluation ECG today looks the same to me. Will ask Dr. Peters to look at ECG with me Checking electrolytes as well Subjective Interval history since last seen: Matilda is feeling fine this am. Her only complaint is that she is tired. She did have an episode of tachycardia this am, after a 500 cc bolus her HR came back down to 80's. Her SBP is [address] down from previous. Matilda tells me that this is a more normal BP for her. She doesn't complain of pain and doesn't complain of N/V. She is tolerating a regular diet. She is having daily BM's. Per Nursing staff patient had an irregular heart rate this am. Per charge nurse she had a HR that went from fast to slow. ECG done on Wednesday was normal. Exam Resp Effort & Inspection: normal respiratory effort Auscultation: clear to auscultation bilaterally Cardio Rate: regular rate Rhythm: regular rhythm Heart Sounds: no gallops, no murmurs and no rubs GI Inspection: incision (c/d/i with some surrounding ecchymosis) Palpation: soft, no hepatosplenomegaly and nontender Auscultation: normal bowel sounds Objective Objective Clinical Data: Abnormal lab results 09/04/18 Range/Units 08:14 WBC 14.57 H (4.4-10.8) k/cumm Absolute Neutrophils 8.92 H (1.2-6.7) k/cumm Absolute Lymphocytes 3.58 H (1.2-3.4) k/cumm Absolute Monocytes 0.90 H (0.11-0.7) k/cumm Absolute Eosinophils 1.11 H (0.0-0.7) k/cumm Vital Signs Temperature 98.6 F 09/04/18 09:19 Temperature Source Tympanic 09/04/18 09:19 Pulse 87 09/04/18 09:26 Pulse Rhythm Regular 09/03/18 19:35 Respiratory Rate 20 09/04/18 09:19 Respiratory Effort Non-Labored 09/03/18 19:35 Respiratory Depth Normal 09/03/18 19:35 Respiratory Pattern Normal 09/03/18 19:35 Blood Pressure 123/87 09/04/18 09:19 Pulse Oximetry 96 09/04/18 09:19 Oxygen Delivery Method Room Air 09/04/18 09:19 Oxygen Flow Rate 0 09/04/18 09:19 Pain Level 0 09/04/18 07:30 Comment 09/04/18 09:26 Intake & Output 09/03/18 09/03/18 09/04/18 11:59 23:59 11:59 Intake Total 2420 / 4643.333 2223.333 / 4643.333 750 / 750 Output Total 3200 / 5600 2400 / 5600 900 / 900 Balance -780 / -956.667 -176.667 / -956.667 -150 / -150 Intake: IV 1000 / 2293.333 1293.333 / 2293.333 500 / 500 Oral 1420 / 2350 930 / 2350 250 / 250 Output: Urine 3200 / 5600 2400 / 5600 900 / 900 Other: Urine Color Yellow Yellow Yellow Urine Appearance Clear Clear Clear Urine Odor None None Normal Comment Void x1 in the toilet. Void x1 in the toilet. Stool Size Moderate Stool Characteristics Soft Formed Brown Voiding Methods Toilet Toilet Toilet Laboratory Results WBC 14.57 k/cumm (4.4-10.8) H 09/04/18 08:14 RBC 4.81 m/cumm (4.00-5.20) 09/04/18 08:14 Hgb 15.0 g/dL (12.0-15.5) 09/04/18 08:14 Hct 44.0 % (36.0-46.0) 09/04/18 08:14 MCV 91.5 fL (80-95) 09/04/18 08:14 MCH 31.2 pg (27.0-33.0) 09/04/18 08:14 MCHC 34.1 g/dL (32.0-36.0) 09/04/18 08:14 RDW 13.2 % (11.7-14.6) 09/04/18 08:14 Plt Count 336 x1000/uL (130-400) 09/04/18 08:14 MPV 10.4 fL (8.0-11.0) 09/04/18 08:14 Immature Gran % 0.2 09/04/18 08:14 Neutrophils % 61.2 09/04/18 08:14 Lymphocytes % 24.6 09/04/18 08:14 Atypical Lymphs % 4 09/01/18 12:00 Monocytes % 6.2 09/04/18 08:14 Eosinophils % 7.6 09/04/18 08:14 Basophils % 0.2 09/04/18 08:14 Absolute Neutrophils 8.92 k/cumm (1.2-6.7) H 09/04/18 08:14 Absolute Lymphocytes 3.58 k/cumm (1.2-3.4) H 09/04/18 08:14 Absolute Monocytes 0.90 k/cumm (0.11-0.7) H 09/04/18 08:14 Absolute Eosinophils 1.11 k/cumm (0.0-0.7) H 09/04/18 08:14 Absolute Basophils 0.03 k/cumm (0.0-0.2) 09/04/18 08:14 Differential Comment Agrees w/ instrument 09/04/18 08:14 RBC Morphology Normal 09/01/18 12:00 Sodium 140 mmol/L (136-145) 09/02/18 07:20 Potassium 3.8 mmol/L (3.5-5.1) 09/02/18 07:20 Chloride 107 mmol/L (98-107) 09/02/18 07:20 Carbon Dioxide 21.6 mmol/L (21.0-32.0) 09/02/18 07:20 Anion Gap 11.4 mmol/L (3-11) H 09/02/18 07:20 BUN 8 mg/dL (7-18) 09/02/18 07:20 Creatinine 0.65 mg/dL (0.55-1.02) 09/02/18 07:20 Estimated GFR/1.73 m2 >= 60.00 (mL/min/1.73m2) 09/02/18 07:20 Glucose 128 mg/dL (70-100) H 09/02/18 07:20 Lactate 1.2 mmol/l (0.6-1.4) 09/03/18 07:07 Calcium 8.9 mg/dL (8.5-10.1) 09/02/18 07:20 Magnesium 2.4 mg/dL (1.8-2.4) 09/01/18 12:00 Total Bilirubin 0.5 mg/dL (0.2-1.0) 09/02/18 07:20 AST 16 U/L (15-37) 09/02/18 07:20 ALT 29 U/L (12-78) 09/02/18 07:20 Alkaline Phosphatase 82 U/L (46-116) 09/02/18 07:20 Troponin I < 0.02 ng/mL (0.00-0.06) 09/01/18 12:00 Total Protein 7.2 g/dL (6.4-8.2) 09/02/18 07:20 Albumin 3.6 g/dL (3.4-5.0) 09/02/18 07:20 Amylase 20 U/L (25-115) L 09/02/18 07:20 Lipase 82 U/L (73-393) 09/02/18 07:20 Procalcitonin <0.10 ng/mL (<=0.15) 09/01/18 14:00 Urine Color Yellow (Yellow) 09/02/18 09:10 Urine Clarity Clear 09/02/18 09:10 Urine pH 7.5 (5-8) 09/02/18 09:10 Ur Specific [place] 1.015 (1.005-1.025) 09/02/18 09:10 Urine Protein Negative mg/dL (Negative) 09/02/18 09:10 Urine Ketones Negative mg/dL (Negative) 09/02/18 09:10 Urine Blood Trace-intact (Negative) H 09/02/18 09:10 Urine Nitrite Negative (Negative) 09/02/18 09:10 Urine Bilirubin Negative (Negative) 09/02/18 09:10 Urine Urobilinogen 0.2 EU/dL (Up TO 0.2) 09/02/18 09:10 Ur Leukocyte Esterase Negative (Negative) 09/02/18 09:10 Urine RBC 0-2 (0-2) 09/02/18 09:10 Urine WBC 0-2 HPF (0-5) 09/02/18 09:10 Ur Epithelial Cells Moderate HPF (Negative) 09/02/18 09:10 Urine Crystals Negative HPF (Negative) 09/02/18 09:10 Urine Bacteria Rare HPF (Negative) 09/02/18 09:10 Urine Casts Negative LPF (Negative) 09/02/18 09:10 Urine Mucus Negative (Negative) 09/02/18 09:10 Urine Other Negative (Negative) 09/02/18 09:10 Ur Culture Indicated? No/sq. contamination 09/02/18 09:10 Urine Glucose Negative mg/dL (Negative) 09/02/18 09:10
[2018-09-04 12:18] LABS: ALT 26 U/L (12-78); AST 13 U/L (15-37); Albumin 3.7 g/dL (3.4-5.0); Alkaline Phosphatase 85 U/L (46-116); BUN 13 mg/dL (7-18); Bilirubin, Total 0.5 mg/dL (0.2-1.0); CREATININE 0.75 mg/dL (0.55-1.02); Calcium 9.3 mg/dL (8.5-10.1); Chloride 100 mmol/L (98-107); Glucose 118 mg/dL (70-100); Magnesium 1.9 mg/dL (1.8-2.4); Potassium 3.7 mmol/L (3.5-5.1); Sodium 137 mmol/L (136-145); Total Protein 7.3 g/dL (6.4-8.2)
--- NOTE | 2018-09-04 12:53 | W.PM.DSUDISC ---
Discharge Plan Disposition Patient Disposition: HOME Condition: Good Discharge Details Chief Complaint: Nausea/Vomit/Diar Reason For Visit: PONV Admit Date/Time: 09/01/18 13:47 Admit Provider: Katelynn Jones Attending Provider: Katelynn Jones Primary Care Provider: Anna Levine ED Provider: [facility] Course Hospital Course: Mrs. Loredo is a 57 year old female who underwent Lap. Martha on 08/31/18 . She was discharged home with minimal pain, no N/V. She went home and took a nap. When she woke up she started experiencing intractable N/V. She was seen in the ER. CXR and ABX were normal. Labs were normal. Abdominal exam revealed minimal post op pain. She was hydrated and she was given some compazine. Patient felt better and went home. She returned the next day with continued N/V, still no abdominal pain. WBC count was 22,ooo with no bandemia. No fevers. She was admitted and started on IV fluids and clear liquids. Over the next 3 days the leukocytosis started to come down. She had one fever the night of surgery, none since then. CT scan was performed on 09/02/18 and was unremarkable. Patient continued to have no abdominal pain. She took no pain meds. CXR was repeated on 09/02 to make sure she had not aspirated and that was normal. An ECG was done on 09/02/18 and was unremarkable. Her Nausea and vomiting resolved after getting some laxatives and she had a large BM on 09/03/18. She was started on a regular diet which she tolerated. BPs since admission were slightly elevated without tachycardia. On 09/04 she had one episode of tachycardia and she was given a fluid bolus. her tachycardia resolved. BP was 116/ 70's. This was a lot lower then before but patient stated this was her normal BP's. She was asymptomatic. there was report from nursing about ? irregular heart reate. When I listened heart rate was normal. ECG was repeated and there were no changes from the previous one. WBC count today 14.56-slightly increased from yesterday. Still no fevers and no abdominal pain. No O2 requirements, no SOB with walking, no N/V. Patient feels fine and is ready to go home. Clinical picture is of a reactive leukocytosis. No antibiotics have been given throughout her stay) Patient will be discharged. I would like her to get a set of labs on Wednesday to make sure her Leukocytosis continues to improve. I will see her the following week. I have asked her to return if she starts to spike a temperature or she has abdominal pain She needs to make sure to keep hydrated. Home Meds and New Rx's Prescriptions: New polyethylene glycol 3350 [ClearLax] 17 gram powder in packet 17 gm PO DAILY Qty: 30 RF: 5 omeprazole magnesium [Acid Mobile Battery Technician (omeprazole)] 20 mg capsule,delayed release(DR/EC) 20 mg PO DAILY Qty: 30 RF: 2 Continued acetylcysteine [NAC] 600 mg capsule 1,200 mg PO DAILY RF: 0 divalproex [Depakote] 500 mg tablet,delayed release (DR/EC) 500 mg PO HS RF: 0 topiramate [Topamax] 100 mg tablet 200 mg PO HS RF: 0 epinephrine [EpiPen] 0.3 mg/0.3 mL auto-injector 0.3 mg IM ONCE RF: 0 ondansetron 8 mg tablet,disintegrating 8 mg PO TID PRNRF: 0 atorvastatin 10 mg Tablet 10 mg PO DAILY RF: 0 acetaminophen 325 mg capsule 650 mg PO Q6H PRN (Reason: fever or pain) Qty: 30 RF: 0 ibuprofen [IBU-200] 200 mg tablet 600 mg PO Q6H PRN (Reason: fever or pain) Qty: 30 RF: 0 Discharge Instructions Additional Instructions: Activity at Home after surgery: 1. Make sure you walk outside at least 4 times per day 2. You should be able to climb a flight of stairs 3. No driving while in pain or taking pain medications 4. No strenuous activity or heavy lifting for 2 weeks (laparoscopic surgery) Diet, Nutrition, & wound healin. Avoid alcohol until after you are recovered from your surgery 2. Make sure to eat plenty of lean protein (meat, fish, eggs, cottage cheese, beans) 3. Eat a variety of fruits and vegetables. Eat plenty of high fiber foods to avoid constipation. 4. Drink plenty of liquids to stay hydrated and avoid constipation Pain Medications: 1. Alternate Tylenol 650 mg and Ibuprofen 600 mg every 3 hours 2. If a narcotic has been prescribed take as directed only for breakthrough pain For Constipation: MiraLax daily for constipation Other: 1. You may shower daily. Do not scrub the incisions 2. Do not soak the incisions for 1 week 3. You may alternate ice and heat as needed for pain and swelling Wound Care: 1. Keep the incisions clean and dry Please call our office if you develop: 1. Fevers >101.5 2. Nausea or Vomiting 3. Worsening pain 4. Redness and thick discharge from the wounds If after hours please call the Hospital at and ask to speak to the on-call surgeon Stand Alone Forms: Nursing Discharge Form Referrals: Lynnette Pryor MD [ [facility] STAFF PHYSICIAN] - 09/13/18 1:30 pm Activity:: no lifting >20 lb Equipment/Supplies:: No Equipment Needed Diet:: low fat Discharge Orders Discharge Orders: Discharge Order (Routine); Ordered 09/04/18 Ordered By: Lynnette Pryor DS: Diagnosis Discharge Diagnosis (1) Leukocytosis: Status: Acute (2) Dehydration: Status: Acute (3) Nausea and vomiting in adult: Status: Acute
--- NOTE | 2018-09-04 13:05 | PDOC.DSDIS_ITS ---
Discharge Plan Disposition Patient Disposition: HOME Condition: Good Discharge Details Chief Complaint: Nausea/Vomit/Diar Reason For Visit: PONV Admit Date/Time: 09/01/18 13:47 Admit Provider: Katelynn Jones Attending Provider: Katelynn Jones Primary Care Provider: Anna Levine ED Provider: [facility] Course Hospital Course: Mrs. Loredo is a 57 year old female who underwent Lap. Martha on 08/31/18 . She was discharged home with minimal pain, no N/V. She went home and took a nap. When she woke up she started experiencing intractable N/V. She was seen in the ER. CXR and ABX were normal. Labs were normal. Abdominal exam revealed minimal post op pain. She was hydrated and she was given some compazine. Patient felt better and went home. She returned the next day with continued N/V, still no abdominal pain. WBC count was 22,ooo with no bandemia. No fevers. She was admitted and started on IV fluids and clear liquids. Over the next 3 days the leukocytosis started to come down. She had one fever the night of surgery, none since then. CT scan was performed on 09/02/18 and was unremarkable. Patient continued to have no abdominal pain. She took no pain meds. CXR was repeated on 09/02 to make sure she had not aspirated and that was normal. An ECG was done on 09/02/18 and was unremarkable. Her Nausea and vomiting resolved after getting some laxatives and she had a large BM on 09/03/18. She was started on a regular diet which she tolerated. BP s since admission were slightly elevated without tachycardia. On 09/04 she had one episode of tachycardia and she was given a fluid bolus. her tachycardia resolved. BP was 116/ 70's. This was a lot lower then before but patient stated this was her normal BP's. She was asymptomatic. there was report from nursing about ? irregular heart reate. When I listened heart rate was normal. ECG was repeated and there were no changes from the previous one. WBC count today 14.56-slightly increased from yesterday. Still no fevers and no abdominal pain. No O2 requirements, no SOB with walking, no N/V. Patient feels fine and is ready to go home. Clinical picture is of a reactive leukocytosis. No antibiotics have been given throughout her stay) Patient will be discharged. I would like her to get a set of labs on Wednesday to make sure her Leukocytosis continues to improve. I will see her the following week. I have asked her to return if she starts to spike a temperature or she has abdominal pain She needs to make sure to keep hydrated. Home Meds and New Rx's Prescriptions: New polyethylene glycol 3350 [ClearLax] 17 gram powder in packet 17 gm PO DAILY Qty: 30 RF: 5 omeprazole magnesium [Acid Used Car Renovator (omeprazole)] 20 mg capsule,delayed release(DR/EC) 20 mg PO DAILY Qty: 30 RF: 2 Continued acetylcysteine [NAC] 600 mg capsule 1,200 mg PO DAILY RF: 0 divalproex [Depakote] 500 mg tablet,delayed release (DR/EC) 500 mg PO HS RF: 0 topiramate [Topamax] 100 mg tablet 200 mg PO HS RF: 0 epinephrine [EpiPen] 0.3 mg/0.3 mL auto-injector 0.3 mg IM ONCE RF: 0 ondansetron 8 mg tablet,disintegrating 8 mg PO TID PRNRF: 0 atorvastatin 10 mg Tablet 10 mg PO DAILY RF: 0 acetaminophen 325 mg capsule 650 mg PO Q6H PRN (Reason: fever or pain) Qty: 30 RF: 0 ibuprofen [IBU-200] 200 mg tablet 600 mg PO Q6H PRN (Reason: fever or pain) Qty: 30 RF: 0 Discharge Instructions Additional Instructions: Activity at Home after surgery: 1. Make sure you walk outside at least 4 times per day 2. You should be able to climb a flight of stairs 3. No driving while in pain or taking pain medications 4. No strenuous activity or heavy lifting for 2 weeks (laparoscopic surgery) Diet, Nutrition, & wound healin. Avoid alcohol until after you are recovered from your surgery 2. Make sure to eat plenty of lean protein (meat, fish, eggs, cottage cheese, beans) 3. Eat a variety of fruits and vegetables. Eat plenty of high fiber foods to avoid constipation. 4. Drink plenty of liquids to stay hydrated and avoid constipation Pain Medications: 1. Alternate Tylenol 650 mg and Ibuprofen 600 mg every 3 hours 2. If a narcotic has been prescribed take as directed only for breakthrough pain For Constipation: MiraLax daily for constipation Other: 1. You may shower daily. Do not scrub the incisions 2. Do not soak the incisions for 1 week 3. You may alternate ice and heat as needed for pain and swelling Wound Care: 1. Keep the incisions clean and dry Please call our office if you develop: 1. Fevers >101.5 2. Nausea or Vomiting 3. Worsening pain 4. Redness and thick discharge from the wounds If after hours please call the Hospital at and ask to speak to the on-call surgeon Stand Alone Forms: Nursing Discharge Form Referrals: Lynnette Pryor MD [ [facility] STAFF PHYSICIAN] - 09/13/18 1:30 pm Activity:: no lifting >20 lb Equipment/Supplies:: No Equipment Needed Diet:: low fat Discharge Orders Discharge Orders: Discharge Order (Routine); Ordered 09/04/18 Ordered By: Lynnette Pryor DS: Diagnosis Discharge Diagnosis (1) Leukocytosis: Status: Acute (2) Dehydration: Status: Acute (3) Nausea and vomiting in adult: Status: Acute
[2018-09-04] MEDS: Patch Removal 1 EACH TP (13:28)
--- NOTE | 2018-09-04 16:06 | PDOC.CMDIS ---
LACE Index Scoring Tool - Questions: Length of Stay (in days): 3 Acuity (Admit via E.D.?): Yes E.D. Visits: 1 - Answers: Total Score: 7 Risk of Readmission: Low Risk Care Management Discharge Reason for Hospitalization: S/P Lap Martha Discharge Plan: Home with no services needed. Family will transport. Patient/Family Education Needs: Discharge instructions
[2018-09-05 12:25] LABS: Procalcitonin, S <0.10 ng/mL (<=0.15)
== END 2018-09-04 14:43 | disposition home or self-care (01) | DRG 392 ==
LOC: ER 14:10 → MS 14:42
PROVIDERS: Admitting Provider Surgery; Emergency Provider Physician Assistant; PCP Internal Medicine; Visit Provider Surgery
DX: E86.0 Dehydration (principal); K59.00 Constipation, unspecified; K91.0 Vomiting following gastrointestinal surgery; D72.829 Elevated white blood cell count, unspecified; Z98.890 Other specified postprocedural states; Z90.49 Acquired absence of other specified parts of digestive tract; G40.909 Epilepsy, unspecified, not intractable, without status epilepticus; G47.33 Obstructive sleep apnea (adult) (pediatric); E03.9 Hypothyroidism, unspecified; E78.5 Hyperlipidemia, unspecified; I10 Essential (primary) hypertension
CPT/HCPCS: 36415; 80053; 83690; 84145; 85048; 96361; 96365; 96366; 99222; 99223; 99232; 99238; 99285; J1650; NC; 71046; 74022; 74177; 81003; 81015; 82150; 83605; 83735; 84484; 85007; 85025; 93005; 93010; 99284; J2405; J3490; Q9967

== ENCOUNTER → 2018-09-13 13:05 | Outpatient (BNVA) | payer MEDICARE, MEDICAID, SELFPAY | PROVIDERS: PCP Internal Medicine; Referring Provider Internal Medicine; Visit Provider Surgery | DX: Z48.815 Encounter for surgical aftercare following surgery on the digestive system (principal); Z90.49 Acquired absence of other specified parts of digestive tract ==

== ENCOUNTER 2022-01-26 13:16 | Emergency (ER) | payer MEDICARE, MEDICAID, SELFPAY ==
--- NOTE | 2022-01-26 13:15 | DI.RAD_ITS ---
Exam(s) XR SHOULDER RT COMPLETE 2+V EXAM: XR SHOULDER RT COMPLETE 2+V CLINICAL HISTORY: Pain. TECHNIQUE: 2D digital imaging was performed. Five views. COMPARISON: No exams were available for comparison FINDINGS: BONES: No acute fracture is present. No bony destructive lesion is seen. JOINTS: No dislocation present. Degenerative changes are noted at the AC joint. SOFT TISSUE: Normal. IMPRESSION: No acute abnormality DATA REPOSITORY: RADIATION DOSE DELIVERED:
--- NOTE | 2022-01-26 13:15 | DI.RAD_ITS ---
Exam(s) XR FOOT LT COMPLETE EXAM: XR FOOT LT COMPLETE CLINICAL HISTORY: Heel pain. TECHNIQUE: 2D digital imaging was performed. Three views. COMPARISON: No exams were available for comparison FINDINGS: BONES: No acute fracture is present. No bony destructive lesion is seen. Small heel spurs. JOINTS: No dislocation present. SOFT TISSUE: Normal. IMPRESSION: Small heel spurs. No acute abnormality. DATA REPOSITORY: RADIATION DOSE DELIVERED:
[2022-01-26 13:22] VITALS: BP 154/83; PULSE 74; RESP 18
--- NOTE | 2022-01-26 13:50 | ED.GENADUL_ITS ---
Discharge Plan Disposition Patient Disposition: HOME Condition: Stable Discharge Details Clinical Impression: Right shoulder pain, Left foot pain Primary Care Provider: Anna Levine ED Provider: Samia Mosley Home Meds and New Rx's Prescriptions: Continued acetylcysteine [NAC] 600 mg capsule 1,200 mg PO DAILY divalproex [Depakote] 500 mg tablet,delayed release (DR/EC) 500 mg PO HS topiramate [Topamax] 100 mg tablet 200 mg PO HS atorvastatin 10 mg Tablet 10 mg PO DAILY acetaminophen 325 mg capsule 650 mg PO Q6H PRN (Reason: fever or pain) Qty: 30 0RF ibuprofen [IBU-200] 200 mg tablet 600 mg PO Q6H PRN (Reason: fever or pain) Qty: 30 0RF omeprazole magnesium [Acid Women'S Studies Lecturer (omeprazole)] 20 mg capsule,delayed release(DR/EC) 20 mg PO DAILY Qty: 30 2RF No Action epinephrine [EpiPen] 0.3 mg/0.3 mL auto-injector 0.3 mg IM ONCE polyethylene glycol 3350 [ClearLax] 17 gram powder in packet 17 gm PO DAILY Qty: 30 5RF Rx Instructions: Hold if you have diarrhea Discharge Instructions Instructions: Shoulder Pain (ED), Leg Pain (ED) Additional Instructions: The xrays do not show anything acute. I suspect plantar fascitis to your foot. PLease follow up with Ortho in the next 2-3 weeks. Take the pain medication as directed. Follow up with primary care provider in 3-5 days. Return to ED sooner if any worsening or concerns. Increase oral fluids. Please take Tylenol or Ibuprofen with food every 4-6 hours as needed for pain and swelling. Rest, ice, compression, elevation. Wear the walking boot as needed for comfort. Referrals: Anna Levine [Primary Care Provider] - 5 days Discharge Data Discharge Date/Time-TO BE ENTERED AT DEPARTURE: 01/26/22 15:37 Medical Decision Making 61-year-old female presents to the ER chief complaint of right shoulder pain and left heel pain which is gotten worse over the last couple of days. She reports right shoulder problems over a year which she was seen physical therapy for. She reports she has been taking ibuprofen which is little to no relief. X-rays ordered. X-rays are within normal limits. I discussed the results with patient who verbalized understanding. Patient was placed in a walking boot instructed on RICE procedures. Instructed to follow-up with orthopedics if no improvement. This text was generated using [employer] dictation system, please disregard any oddities of phrase or misspellings. HPI General Mode of arrival: ambulatory . Date/Time Provider Initiated Documentation: 01/26/22 13:28 . Limitations to Documentation: no limitations . Information obtained by: patient and RN notes reviewed . HPI Narrative: 61-year-old female presents to the ER chief complaint of right shoulder pain and left heel pain which is gotten worse over the last couple of days. She reports right shoulder problems over a year which she was seen physical therapy for. She reports she has been taking ibuprofen which is little to no relief. She has increased pain with raising her arm. No significant trauma or known injury recently. Related Data Home Medications Medication Instructions Recorded Confirmed epinephrine 0.3 mg/0.3 mL 0.3 mg IM ONCE 08/23/18 08/31/18 injection, auto-injector (EpiPen) acetylcysteine 600 mg capsule (NAC) 1,200 mg PO DAILY 08/26/18 08/31/18 divalproex 500 mg tablet,delayed 500 mg PO HS 08/26/18 08/31/18 release (Depakote) topiramate 100 mg tablet (Topamax) 200 mg PO HS 08/26/18 08/31/18 atorvastatin 10 mg tablet 10 mg PO DAILY 08/29/18 08/31/18 acetaminophen 325 mg capsule 650 mg PO Q6H PRN fever or pain 08/31/18 08/31/18 #30 caps ibuprofen 200 mg tablet (IBU-200) 600 mg PO Q6H PRN fever or pain 08/31/18 08/31/18 #30 tabs omeprazole magnesium 20 mg 20 mg PO DAILY #30 caps 09/04/18 capsule,delayed release (Acid Women'S Studies Lecturer (omeprazole)) polyethylene glycol 3350 17 gram 17 gm PO DAILY #30 ea 09/04/18 oral powder packet (ClearLax) Previous Rx's Medication Instructions Recorded acetaminophen 325 mg capsule 650 mg PO Q6H PRN fever or pain 08/31/18 #30 caps ibuprofen 200 mg tablet (IBU-200) 600 mg PO Q6H PRN fever or pain 08/31/18 #30 tabs omeprazole magnesium 20 mg 20 mg PO DAILY #30 caps 09/04/18 capsule,delayed release (Acid Women'S Studies Lecturer (omeprazole)) polyethylene glycol 3350 17 gram 17 gm PO DAILY #30 ea 09/04/18 oral powder packet (ClearLax) Allergies Allergy/AdvReac Type Severity Reaction Status Date / Time bee venom protein (honey bee) Allergy Severe Swelling/Ed Unverified 01/26/22 13:27 emiliano Tricyclic Compounds AdvReac Intermediate Hives Verified 01/26/22 13:27 General Stated Complaint: Orthopedic [place]: 3 PFSH All Active Problems (Updated 01/26/22 @ 15:26 by Samia Mosley NP) Right shoulder pain (Acute) Left foot pain (Acute) Nausea and vomiting in adult (Acute) Irregular heart rate (Acute) Hypertension (Chronic) Leukocytosis (Acute) Dehydration (Acute) Elevated WBC count (Acute) PONV (postoperative nausea and vomiting) (Acute) S/P laparoscopic cholecystectomy (Acute ~08/31/18) Tenosynovitis (Chronic) Seizures (Chronic) Obstructive sleep apnea of adult (Chronic) Hypothyroidism (Chronic) Hyperlipidemia (Chronic) Cervical radiculopathy (Chronic) Carpal tunnel syndrome, left upper limb (Chronic) Allergic rhinitis (Chronic) Surgical History History of ear, nose, and throat (ENT) surgery deviated septum surgery Hx of myomectomy S/P total hysterectomy Family History Father Progressive supranuclear palsy Mother Hyperlipidemia Hypertension Diabetes Social History Smoking/Tobacco Use Status: Current-Occasional Tobacco Type: cigarettes Smoking risk assessment performed?: Yes Alcohol Intake: current Alcohol Intake frequency: holidays/special occasions only Drug use: Daily Substance use type: marijuana Household members: significant other Number of Children: 3 Do you feel safe at home: Yes Do you feel safe in your relationship?: Yes Exam Extrem General: normal to inspection Right upper extremity: shoulder/upper arm Details: normal to inspection, tenderness Location: of the A-C joint and abnormal ROM Details: pain with active ROM Details: in ABduction and in internal rotation; no swelling, no deformity and no unusual warmth Left lower extremity: foot Details: tenderness Location: of the calcaneus Details: point tenderness Course Vital Signs Vital signs: Vital Signs Pulse 74 01/26/22 13:22 Respiratory Rate 18 01/26/22 13:22 Blood Pressure 154/83 H 01/26/22 13:22 Pulse 74 01/26/22 13:22 Respiratory Rate 18 01/26/22 13:22 Respiratory Effort Non-Labored 01/26/22 13:27 Blood Pressure 154/83 H 01/26/22 13:22 Blood Pressure Position Sitting 01/26/22 13:22 Oxygen Delivery Method Room Air 01/26/22 13:22 Oxygen Flow Rate 0 01/26/22 13:22
--- NOTE | 2022-01-26 15:06 | DI.VRAD_ITS ---
PROCEDURE INFORMATION: Exam: XR Right Shoulder Exam date and time: 01/26/2022 2:09 PM Age: 61 years old Clinical indication: Pain; Shoulder; Right TECHNIQUE: Imaging protocol: Radiologic exam of the Right shoulder. Views: 2 or more views. COMPARISON: CR XR CHEST 2V PA LATERAL 09/02/2018 7:50 PM FINDINGS: Bones/joints: No fracture. Mild degenerative changes of the acromioclavicular joint. Soft tissues: Normal. IMPRESSION: No acute findings. Dictated and Authenticated by: Valente Garner MD. Ordering:BRYANT Gracia MD
--- NOTE | 2022-01-26 15:11 | DI.VRAD_ITS ---
PROCEDURE INFORMATION: Exam: XR Left Foot Exam date and time: 01/26/2022 2:15 PM Age: 61 years old Clinical indication: Pain; Foot; Left TECHNIQUE: Imaging protocol: Radiologic exam of the Left foot. Views: 3 or more views. COMPARISON: No relevant prior studies available. FINDINGS: Bones/joints: Normal. Soft tissues: Normal. IMPRESSION: No acute findings. Dictated and Authenticated by: Valente Garner MD. Ordering:BRYANT Gracia MD
[2022-01-26 15:22] VITALS: BP 149/88; PULSE 77; RESP 16; TEMP 36.4; O2SAT 97
--- NOTE | 2022-02-10 17:20 | NUR.NOTE ---
Nursing Note: Accessed pt chart to fax provider note to [facility] for billing purposes.
== END 2022-01-26 15:37 | disposition home or self-care (01) ==
PROVIDERS: Emergency Provider Registered Nurse Emergency; PCP Internal Medicine
DX: M25.511 Pain in right shoulder (principal); M79.672 Pain in left foot; F17.210 Nicotine dependence, cigarettes, uncomplicated
CPT/HCPCS: 99284; 73030; 73630; 99282

== ENCOUNTER → 2022-02-24 10:03 | Outpatient (BNVA) | payer MEDICARE, MEDICAID, SELFPAY | PROVIDERS: PCP Internal Medicine; Referring Provider Internal Medicine; Visit Provider Student in an Organized Health Care Education/Training Program | DX: M75.101 Unspecified rotator cuff tear or rupture of right shoulder, not specified as traumatic (principal); M75.51 Bursitis of right shoulder; M75.21 Bicipital tendinitis, right shoulder | CPT/HCPCS: 99204; 99214 ==

== ENCOUNTER → 2022-03-17 01:31 | Outpatient (CLI) | payer MEDICARE, MEDICAID, SELFPAY ==
--- NOTE | 2022-03-17 07:30 | DI.MRI_ITS ---
Exam(s) MR UPPER JOINT RT WO EXAM: MR UPPER JOINT RT WO CLINICAL HISTORY: RIGHT SHOULDER PAIN,m25.511 TECHNIQUE: Multiplanar multisequence MRI of the shoulder was performed. COMPARISON: CR,XR XR SHOULDER RT COMPLETE 2+V from 01/26/2022 CR,XR XR FOOT LT COMPLETE from 01/26/2022 FINDINGS: MARROW:There is no evidence of fracture, Hill-Sachs deformity, nor ominous osseous lesions. ROTATOR CUFF MECHANISM: AC JOINT/ACROMIUM: There moderate degenerative changes in the AC joint. Mild this level.. There is no evidence of os acromiale. Supraspinatus: There is a full-thickness tear in the supraspinatus-rotator cuff tendon just above the foot pad insertional site. Fluid traverses the entire thickness and there is some fluid seen in the subacromial-subdeltoid bursa. There is no retraction musculotendinous junction. No true muscle atr ophy. Infraspinatus: There is cystic change at the musculotendinous junction but no full-thickness tear. T here are few small subarticular cysts in the posterior aspect the humeral head subjacent to the infra spinatus insertion site. These measure 3 millimeters. No atrophy. Teres Minor: Intact. No evidence of tear nor muscle atrophy. Subscapularis/anterior cuff: There is some tendinitis signal in the subscapularis insertional fibers just anterior to lesser tuberosity. There is, however, no full-thickness tear. No abnormal intraoss eous signal nor cysts evident within the lesser tuberosity nor within the coracoid process. BICEPS TENDON: Not displaced from the intertubercular groove. No tear with intramuscular component. No tenosynovitis. LABRUM: Superior labrum intact. Posterior labrum appears intact. Anterior labrum appears intact as does the anteroinferior labrum and there is no evidence of periosteal scapular stripping at this leve l. The inferior labrum appears intact as does the inferior glenohumeral ligament. There is no evidence of bony Bankart lesion. GLENOHUMERAL JOINT: Minimal degenerative changes. Minimal amount of increased joint fluid. No loose intra-articular bodies. No degenerative subarticular cysts evident in the osseous glenoid. QUADRILATERAL SPACE: No evidence of mass in the region of the axillary nerve and dorsal circumflex hu meral vessels. Visualized triceps muscle at this level appears unremarkable. IMPRESSION: 1. There is a full-thickness tear of the supraspinatus-rotator cuff tendon just above the foot pad in sertion. There is no prominent retraction musculotendinous junction. There is fluid in the sub acro mial-subdeltoid bursa 2. There is some cystic change at the musculotendinous junction of the infraspinatus but no distinct tear of this structure. Also no atrophy. 3. Some tendinitis signal seen in the anterior cuff-subscapularis but no high-grade tear of this comp onent of the rotator cuff mechanism. 4. No evidence of biceps tendon nor labral tear. No evidence of paralabral cyst. 5. Minimal degenerative changes. No osteophytes. No loose intra-articular bodies. DATA REPOSITORY:
== END ==
PROVIDERS: PCP Internal Medicine; Visit Provider Student in an Organized Health Care Education/Training Program
DX: M75.101 Unspecified rotator cuff tear or rupture of right shoulder, not specified as traumatic (principal)
CPT/HCPCS: 73221

== ENCOUNTER → 2022-03-24 12:49 | Outpatient (BNVA) | payer MEDICARE, MEDICAID, SELFPAY | PROVIDERS: PCP Internal Medicine; Referring Provider Internal Medicine; Visit Provider Student in an Organized Health Care Education/Training Program | DX: M75.101 Unspecified rotator cuff tear or rupture of right shoulder, not specified as traumatic (principal); M75.51 Bursitis of right shoulder; M75.21 Bicipital tendinitis, right shoulder | CPT/HCPCS: 99214 ==

== ENCOUNTER 2022-04-23 09:05 | Day surgery (SDC) | payer MEDICARE, MEDICAID, SELFPAY ==
[2022-04-23] VITALS (9 sets, daily range): BP systolic 97–148; BP diastolic 64–88; PULSE 55–67; RESP 14–18; TEMP 36–36.4; O2SAT 94–99; BMI 30.7
[2022-04-23] MEDS: Lactated Ringers 1,000 ML 30 ML IV (09:57)
--- NOTE | 2022-04-23 10:11 | W.ANESPRE ---
General Info Date of Service Date Performed: 04/23/22 Height: 5 ft 8 in Weight: 91.7 kg Body Mass Index (BMI): 30.7 Surgical Procedure: Operation Date: 04/23/22 10:40 Proposed Procedure Side Surgeon p Shoulder Rotator Cuff Arthroscopic, EXTENSIVE DEBRIDEMENT, BICEPS TENODESIS, SUBACROMIAL DECOMPRESSION Right Hitesh Moreno MD Meds Allergies and Home Medications Allergies Allergy/AdvReac Type Severity Reaction Status Date / Time bee venom protein (honey bee) Allergy Severe Swelling/Ed Unverified 04/23/22 09:36 emiliano atorvastatin AdvReac Intermediate myalgias Verified 04/23/22 09:36 Tricyclic Compounds AdvReac Intermediate Hives Verified 04/23/22 09:36 Home Medication Medication Instructions Recorded epinephrine 0.3 mg/0.3 mL 0.3 mg IM ONCE 08/23/18 injection, auto-injector (EpiPen) Current Visit Medications: Current Medications Generic Name Dose Route Start Last Admin Trade Name Freq PRN Reason Stop Dose Admin Ringer's Solution 1,000 mls @ 30 mls/hr 04/23/22 06:00 04/23/22 09:57 IV 05/22/22 23:59 30 mls/hr INFUSION LIOR Administration Cefazolin Sodium/Dextrose 2 gm in 50 mls @ 100 mls/hr 04/23/22 06:00 Ancef Duplex IVPB 04/23/22 16:00 PREOP LIOR IV Miscellaneous Supplies 1 each 04/23/22 06:00 Iv Access IV 05/22/22 23:59 DIRECTED LIOR Oxycodone HCl 0 mg 04/23/22 07:17 Oxycodone 5 Mg Tab PO Q3H PRN PRN Pain Sodium Chloride 0 ml 04/23/22 06:00 Normal Saline Flush 10 Ml Syr IV 05/22/22 23:59 PRN PRN Sodium Chloride 0 ml 04/23/22 06:00 Normal Saline 10 Ml Vial IJ 05/22/22 23:59 DIRECTED PRN Sterile Water 0 ml 04/23/22 06:00 Water,Injection,Sterile 10 Ml Vial IJ 05/22/22 23:59 DIRECTED PRN PFSH Active Problems Active Problems: Problem Status Onset Code Right rotator cuff tear M75.101 Plantar fascia syndrome M72.2 Nausea and vomiting in adult R11.2 Irregular heart rate I49.9 Hypertension I10 Leukocytosis D72.829 Dehydration E86.0 Elevated WBC count D72.829 PONV (postoperative nausea and vomiting) R11.2, Z98.890 H/O gynecological procedure Z98.890 S/P laparoscopic cholecystectomy ~08/31/18 Z90.49 Tenosynovitis M65.9 Seizures R56.9 Obstructive sleep apnea of adult G47.33 Hypothyroidism E03.9 Hyperlipidemia E78.5 Cervical radiculopathy M54.12 Carpal tunnel syndrome, left upper limb G56.02 Allergic rhinitis J30.9 Medical History Medical History Biceps tendinitis of right shoulder Bursitis of right shoulder Surgical History Surgical History History of ear, nose, and throat (ENT) surgery deviated septum surgery Hx of myomectomy S/P total hysterectomy Tobacco Smoking/Tobacco Use Status: Former Tobacco Use Alcohol Alcohol Intake: current Alcohol intake frequency: holidays/special occasions only Alcohol type: beer, wine and hard liquor Substance Use Substance use: Daily Substance use type: marijuana Details: smokes & eats Marijuana for anxiety and pain, last used today 0900.HE Vital Signs and Lab Results Vital Signs Most Recent Vital Signs in EMR: Most Recent Vital Signs Temp Pulse Resp BP Pulse Ox 36.3 C L 67 18 143/83 H 97 04/23/22 09:25 04/23/22 09:25 04/23/22 09:25 04/23/22 09:25 04/23/22 09:25 Lab Results Blood Type / Crossmatch: No Data to Display Complete Blood Count: No Data to Display Complete Metabolic Panel: No Data to Display Liver Function Panel: No Data to Display Coagulation Panel: No Data to Display Cardiac Panel: No Data to Display Arterial Blood Gas: No Data to Display Venous Blood Gas: No Data to Display Pancreas Panel: No Data to Display Thyroid Panel: No Data to Display Infectious Disease: No Data to Display Blood Cultures: No Data to Display Toxicology Panel: No Data to Display Anesthesia Assessment and Plan Anesthesia History Personal History: PONV Family History: No Family History of Anesthesia Complications Exercise Tolerance Exercise Tolerance: Metabolic Equivalents>4 Pertinent Negatives Pertinent Negatives: No Symptoms of GERD, No Major Cardiovascular Symptoms or Complaints and No Major Pulmonary Symptoms or Complaints (Daily marijuana, asthma, LU does not wear CPAP) Cardiac & Pulmonary Exam Cardiac Exam: Normal S1/S2 Heart Sounds Pulmonary Exam: Clear Bilateral Breath Sounds Implantable Cardiac Device Does patient have a Pacemaker or an ICD?: No Airway Exam Known Difficult Airway: No Mallampati Class: 1 Mouth Opening: Normal (> 3cm) Thyromental Distance: Greater than 3 cm Neck Range of Motion: Full ROM Neck Circumference: Thick Teeth Condition: Edentulous (Top, five remaining teeth bottom plus one broken back left) ASA Classification ASA Score: ASA 2 Emergency Case?: No NPO Status NPO Status: NPO Clears >2 hours, Solids >8 hours Anesthesia Plan Resuscitation Status: Full Code Anesthesia Technique: General Anesthesia Airway Planned: Endotracheal Tube Pain Management: Surgeon and patient request nerve block Monitors Used: Standard Monitors
[2022-04-23] MEDS: ceFAZolin 2 GM/50 ML BAG IVPB (11:47)
--- NOTE | 2022-04-23 12:16 | W.ANESNERVE ---
Nerve Block Single Injection Procedure Date and Time Date Performed: 04/23/22 Procedure Start: 11:05 Location Where Procedure Performed Procedure Location: Day Surgery Unit Reason Performed: Postoperative Analgesia Requesting Provider: Hitesh Moreno Timeout Performed Timeout Performed: Yes Monitoring Used ECG, Blood Pressure and SpO2 Sterility Sterility: Hand Hygiene, Surgical Cap, Surgical Mask, Sterile Gloves, Eye Protection and Chlorhexidine Sedation Given During Procedure Sedation Given (Indicate Dose Given): Versed IV Dose:: 2mg Patient Mental Status Patient Mental Status: Sedate with meaningful communication Nerve Block 1st Nerve Block: Laterality: Right Block Type: Interscalene Needle / Catheter Used: 100mm SonoPlex II Local Anesthetic Bolus (Indicate Dose Given): Lidocaine used for local infiltration of skin, Injected in 3-5ml increments after negative blood aspiration, Bupivacaine 0.5% Dose:: 10cc and Exparel Dose:: 10cc Additives (Indicate Dose Given): None Ultrasound: Sterile probe cover and gel used Ultrasound Image Saved?: Yes Nerve Stimulator: Not Used Paresthesia: None Post Procedure Pain score (0-10): 0 Procedure Tolerated: No Complications and Patient tolerated well Procedure Outcome: Successful Performed By: Dominic Dodge
[2022-04-23] MEDS: EPINEPHrine 30 MG/30 ML VIAL (14:00)
--- NOTE | 2022-04-23 14:01 | W.PM.DSUDISC ---
Date of service: 04/23/22 Time of Service: 13:00 Discharge Plan Disposition Patient Disposition: HOME Condition: Good Discharge Details Attending Provider: Hitesh Moreno Primary Care Provider: Anna Levine Home Meds and New Rx's Prescriptions: New aspirin 81 mg tablet,delayed release (DR/EC) 81 mg PO DAILY 7 Days Qty: 7 0RF oxycodone 5 mg tablet 5 - 10 mg PO Q4H MDD 30 mg PRN (Reason: moderate to severe pain) Qty: 18 0RF naproxen 250 mg tablet 250 - 500 mg PO BID PRNQty: 40 0RF Rx Instructions: take with a meal Continued epinephrine [EpiPen] 0.3 mg/0.3 mL auto-injector 0.3 mg IM ONCE Discontinued ibuprofen [IBU-200] 200 mg tablet 600 mg PO Q6H PRN (Reason: fever or pain) Qty: 30 0RF Discharge Instructions Additional Instructions: Surgery: Right shoulder arthroscopy with rotator cuff repair (supraspinatus), biceps tenodesis, extensive debridement, and subacromial decompression. Activity: For 6 weeks, you should keep your arm at your side in a neutral position at all times except for physical therapy. Do not try to lift or raise your arm using your own muscles. You should use the sling whenever you are out of the house. You may have to adjust the abduction pillow or remove it for comfort. At home it is best to remove the sling and rest the arm on a pillow at your side or support the operative side with your other hand. You may allow the arm to dangle at your side. A physical therapy prescription will be sent electronically to begin in about 3 weeks. Prescriptions: Aspirin 81 mg take 1 daily to prevent a blood clot for 7 days Naproxen 250 mg take 1-2 every 12 hours with a meal as needed for moderate pain Oxycodone 5 mg take 1-2 every 4-6 hours as needed for severe pain You may use [id number] Tylenol (acetaminophen) as needed for mild pain. These pain medications may be taken all at once or in different combinations as needed. Also, recommend Colace (docusate) as a stool softener as surgery and pain medicine cause constipation. You may try [id number]-hdokado diphenhydramine (Benadryl) 25-50 mg nightly as a sleep aid Dressings: Remove shoulder bandage after 3 days. Leave the sticky Steri-Strips in place until they fall off or remove them after you shower. Cover the incisions with Band-Aids or leave them open to air. You may shower after 5 days. Follow-up: 10-[address] Moreno You may take off the leg compression stockings this evening at home. You may also leave them on a few days longer if you have a history of leg swelling or edema. Let us know right away if you develop any redness, drainage, fevers, chest pain, or trouble breathing. Do not drink alcohol or drive for at least 24 hours after anesthesia. Please call the office during business hours with any questions or concerns. DS: Diagnosis Discharge Diagnosis (1) Right rotator cuff tear: Status: Acute
--- NOTE | 2022-04-23 16:16 | ROE_ITS ---
Date of service: 04/23/22 Time of Service: 11:00 Operative Note Operative Note DATE OF PROCEDURE: 04/23/22 PRE-OP DIAGNOSIS: Right: 1. Rotator cuff tear 2. LHB tendinopathy 3. Bursitis POST-OP DIAGNOSIS: same PROCEDURE: Right: 1. Rotator cuff repair, CPT# 20201. This involved repair of the supraspinatus using anchors and sutures to reattach the rotator cuff back to the footprint of the greater tuberosity. 2. Arthroscopic biceps tenodesis, CPT# 27185. This involved arthroscopically suturing and reattaching the long head of the biceps tendon to the proximal humerus at the superior margin of the bicipital groove with a screw at the correct tension. 3. Extensive debridement, CPT# 43252. This involved using arthroscopic hand instruments, power instruments, and radiofrequency instruments to release the long head of the biceps tendon and debride areas of labral tearing, synovitis, and chronic fibrinous changes about the humeral head and greater tuberosity working within the glenohumeral joint anteriorly, superiorly and posteriorly. 4. Subacromial decompression with partial acromioplasty, CPT# 41306. This involved using arthroscopic power instruments and a radiofrequency wand to complete a bursectomy and remove bone spurs on the undersurface of the acromion. The bilingual medical assistant was medically required in order to help assist in techniques above, which require positioning the arm, holding the arthroscope, and manipulating multiple instruments and sutures at the same time. This cannot be done without the help of an experienced bilingual medical assistant. SURGEON: Hitesh Moreno ASSOCIATE SPA DIRECTOR: Katelynn Chow ANESTHESIA TYPE: General LMA/ETT and Primary Nerve Block Refer to Anesthesia Record ESTIMATED BLOOD LOSS: 10 PATHOLOGY: none sent COMPLICATIONS: None Patient was transported to: PACU Patient's condition: stable Implants: Arthrex: 4.75mm SwiveLocks x 2 and 5.5mm SwiveLock x 1 Indications: The patient was diagnosed with the above conditions and appropriately indicated for surgical intervention. Please see complete medical record for details. Findings: Exam under anesthesia: Mild limitation to external rotation and forward elevation, no instability Glenohumeral joint: Significant anterior superior and to a lesser extent posterior synovitis. Degenerative type SLAP tear, labral fraying, and mild chondromalacia about the lesser tuberosity, and largely intact superior capsule with thin veil revealing full-thickness tear supraspinatus. Subacromial space: Moderate bursitis. Delaminated largely 2 layers thin capsular minimally retracted supraspinatus tear and larger thicker frayed and degenerative moderately attracted bursal majority layers. Moderate greater tuberosity remnant tendon. Minimal infraspinatus involvement. Procedure Description: In the operating room, general anesthesia was induced. Bilateral shoulders were examined. The patient was positioned in the beachchair position. All bony prominences were well-padded. Preoperative antibiotics were administered. The shoulder was prepped and draped in the usual sterile fashion. The correct patient, procedure, and side of the procedure were all verified prior to incision. Starting through the posterior portal a standard complete diagnostic arthroscopy was performed of the glenohumeral joint including inspection of the long head of the biceps, anterior and superior labrum, subscapularis tendon, supraspinatus and infraspinatus tendons, and axillary recess. The glenoid and humeral head cartilage as well as the posterior labrum were inspected from an anterior viewing portal. Significant findings and interventions noted above. An all-arthroscopic suprapectoral biceps tenodesis was performed through an anterior portal using a Loop N Tack method with a SutureTape FiberLink cinched around and through the tendon. The biceps was tenotomized from the labrum withdrawn out the anterior portal for later fixation with the rotator cuff repair. Starting through the posterior portal, the arthroscope was directed into the subacromial space. A lateral 50 yard line lateral portal was created. A combination of power instruments and a radiofrequency ablator were used to debride bursitis anteriorly, posteriorly, and laterally as well as expose and smooth the undersurface of the acromion. The coracoacromial ligament was partially released. The bursectomy was completed viewing laterally and working from posteriorly and the rotator cuff was thoroughly inspected with findings noted above. The rotator cuff was inspected. The supraspinatus had a somewhat unusual chronic near?full-thickness tear pattern. There was moderate remnant tendon on the central and anterior greater tuberosity as well as chronic fibrinous changes more medially. There was the thinnest veil of articular sided tissue nearly still intact followed by a large void and then the majority bursal layers frayed and moderately retracted above. There was minimal involvement into the infraspinatus. Anteriorly the tear started just past the biceps. The greater tuberosity was thoroughly debrided medially to optimize bone tendon healing of this delaminated and somewhat medial transtendinous tear. A single 4.75 mm knotless SwiveLock anchor was placed at the central articular margin as the medial row. It was loaded with a FiberTape as well as the biceps tendon repair suture to complete the tenodesis. Separately, the layers of the rotator cuff were incorporated starting bypassing the FiberTape's using the self retrieving suture passer sequentially anterior and posterior to the anchor through each layer of the supraspinatus at the appropriate levels and each tag was withdrawn out anteriorly and posteriorly. The knotless repair suture was then used to secure the articular layer with the superior capsule to the medial prepared footprint in a horizontal mattress configuration. An additional suture tape FiberLink was then placed in the bursal layer between the tapes. The tapes and the link were then brought laterally completing reduction and compression of the majority of the tendon medially and reapproximation to remnant laterally and secured to a 5.5 mm central lateral anchor. The anteriormost aspect of the tear was inspected and while it had good coverage over the tuberosity there was an area of bursal tendon not compressed to the footprint. The arm was externally rotated and the self retrieving suture passer used to pass an inverted horizontal mattress FiberTape with a ripstop FiberLink to secure this tissue and fixated to an anterior lateral row 4.75 mm swivel lock anchor. The final repair was inspected and demonstrated good tissue reduction without undue tension with zoroastrian of tendon across the majority of the greater tuberosity. The shoulder was drained of arthroscopic fluid. All portal sites were copiously irrigated. These incisions were closed using 3-0 Monocryl in a buried fashion and then covered with Mastisol, Steri-Strips, Xeroform, dry gauze, and ABDs. The dressings were covered and secured with Medipore tape. The operative extremity was placed into a sling for immobilization. The patient awoke from anesthesia without complication and was transferred to the recovery room in a stable condition.
--- NOTE | 2022-04-25 21:23 | W.ANESPOSTOP ---
Postoperative Evaluation Date, Time and Location Date Performed: 04/24/22 Time Performed: 18:09 Patient Location: Day Surgery Unit Vital Signs Most Recent Imported Vital Signs: Most Recent Vital Signs Temp Pulse Resp BP Pulse Ox 36.1 C L 61 18 135/84 96 04/23/22 15:34 04/23/22 15:34 04/23/22 15:34 04/23/22 15:34 04/23/22 15:34 Pain Score Most Recent Pain Score: Most Recent Pain Score Pain Level 0 04/23/22 15:34 Assessment Mental Status: Awake (Alert & Oriented to Patient Baseline) Airway and Respiratory Function: Patent airway with normal (patient baseline) respiratory exam Cardiovascular Function: Hemodynamically Stable Hydration Status: Adequately Hydrated Nausea & Vomiting: No Nausea or Vomiting Pain: Pt. Denies Any Pain Peripheral Nerve Block: Regional nerve block not resolved at time of post operative discharge
== END 2022-04-23 16:22 | disposition home or self-care (01) ==
PROVIDERS: PCP Internal Medicine; Visit Provider Student in an Organized Health Care Education/Training Program
PROC: (CPT 29827; principal; 2022-04-23 10:30)
DX: M75.101 Unspecified rotator cuff tear or rupture of right shoulder, not specified as traumatic (principal); M75.21 Bicipital tendinitis, right shoulder; M75.51 Bursitis of right shoulder; M65.811 Other synovitis and tenosynovitis, right shoulder
CPT/HCPCS: 29827; 29828; 29826; 29823; 76942; J0131; J0690; J1100; J1885; J2250; J2370; J2405

== ENCOUNTER → 2022-05-06 13:22 | Outpatient (BNVA) | payer MEDICARE, MEDICAID, SELFPAY | PROVIDERS: PCP Internal Medicine; Referring Provider Internal Medicine; Visit Provider Student in an Organized Health Care Education/Training Program | DX: Z47.89 Encounter for other orthopedic aftercare (principal); M75.101 Unspecified rotator cuff tear or rupture of right shoulder, not specified as traumatic ==

== ENCOUNTER → 2022-06-24 12:59 | Outpatient (BNVA) | payer MEDICARE, MEDICAID, SELFPAY | PROVIDERS: PCP Internal Medicine; Referring Provider Internal Medicine; Visit Provider Student in an Organized Health Care Education/Training Program | DX: Z47.89 Encounter for other orthopedic aftercare (principal) ==

== ENCOUNTER → 2022-08-26 12:52 | Outpatient (BNVA) | payer MEDICARE, MEDICAID, SELFPAY | PROVIDERS: PCP Internal Medicine; Referring Provider Internal Medicine; Visit Provider Student in an Organized Health Care Education/Training Program | DX: Z47.89 Encounter for other orthopedic aftercare (principal); M75.101 Unspecified rotator cuff tear or rupture of right shoulder, not specified as traumatic | CPT/HCPCS: 99213 ==

== ENCOUNTER → 2023-02-24 12:53 | Outpatient (BNVA) | payer MEDICARE, MEDICAID, SELFPAY | PROVIDERS: PCP Internal Medicine; Referring Provider Internal Medicine; Visit Provider Student in an Organized Health Care Education/Training Program | DX: M75.101 Unspecified rotator cuff tear or rupture of right shoulder, not specified as traumatic (principal) | CPT/HCPCS: 99212 ==